=== PATIENT | female | born 1950 | race Caucasian/White ===

== ENCOUNTER → 2017-03-08 | Outpatient (CLI) | payer OTHER ==
[~2017-03-08] MED LIST: BMX1; CRG40; NAPR-201; PANT40TA; POTA-327; SIMV20TA2
--- NOTE | 2017-03-08 12:35 | MAMMOGRAPHY REPORT ---
BILATERAL DIGITAL SCREENING MAMMOGRAM WITH CAD: 03/08/2017 CLINICAL HISTORY: Routine screening. Patient has no complaints. TECHNIQUE: Current study was also evaluated with a Computer Aided Detection (CAD) system. Bilatera l CC and MLO views were obtained. COMPARISON: Comparison is made to exams dated: 03/05/2016 mammogram, 03/02/2015 mammogram, 03/01/2014 ma mmogram, 02/25/2012 mammogram, 02/26/2013 mammogram, and 01/08/2011 mammogram - [facility]. BREAST COMPOSITION: There are scattered areas of fibroglandular density in both breasts. FINDINGS: No suspicious masses, calcifications, or areas of architectural distortion are noted in e ither breast. There has been no significant interval change compared to prior exams. IMPRESSION: ACR BI-RADS CATEGORY 1: NEGATIVE There is no mammographic evidence of malignancy. A 1 year screening mammogram is recommended. The p atient will receive written notification of the results. Approximately 10% of breast cancers are not detected with mammography. A negative mammographic repor t should not delay biopsy if a clinically suggestive mass is present. Val Srivastava M.D. ah/:03/08/2017 12:23:03 Cobol Application Developer: Melissa VELEZ(Nancy)(Maira), [facility] letter sent: Normal 1/2 BI-RADS Code: ACR BI-RADS Category 1: Negative
== END | disposition home or self-care (01) ==
LOC: C.MAMM 09:31
PROVIDERS: ATTEND Obstetrics & Gynecology
DX: Z12.31 Encounter for screening mammogram for malignant neoplasm of breast (principal)

== ENCOUNTER → 2017-05-15 | Outpatient (CLI) | payer OTHER ==
[2017-05-15 14:22] LABS: ALT/SGPT 21 U/L (12-78); AST/SGOT 21 U/L (15-37); BLOOD UREA NITROGEN 29 mg/dl (7-18); BUN/CREATININE RATIO 31.3 (10-20); CALCIUM 9.1 mg/dl (8.5-10.1); CARBON DIOXIDE 27 mmol/L (21-32); CHLORIDE 104 mmol/L (98-107); CHOLESTEROL 129 mg/dl (0-200); CREATININE 0.92 mg/dl (0.60-1.20); GLUCOSE 86 mg/dl (70-99); SODIUM 139 mmol/L (136-145)
[2017-05-15 14:25] LABS: ALB/GLOB RATIO 0.9 (0.9-2); ALKALINE PHOSPHATASE 65 U/L (45-117); CHOLESTEROL/HDL RATIO 3.3; HDL CHOLESTEROL 39 mg/dl; TRIGLYCERIDES 243 mg/dl (0-150); VERY LOW DENSITY LIPOPROT CALC 49 mg/dl
[2017-05-15 14:53] LABS: ESTIMATED AVERAGE GLUCOSE 105 mg/dl; HA1C FLAG Normal (Normal)
== END | disposition home or self-care (01) ==
LOC: C.LABSPEC 12:10
PROVIDERS: ATTEND Internal Medicine
DX: Z00.00 Encounter for general adult medical examination without abnormal findings (principal); I10 Essential (primary) hypertension; E11.65 Type 2 diabetes mellitus with hyperglycemia; E78.5 Hyperlipidemia, unspecified

== ENCOUNTER → 2017-11-08 | Outpatient (CLI) | payer OTHER ==
[2017-11-08 13:15] LABS: ESTIMATED AVERAGE GLUCOSE 108 mg/dl; HA1C FLAG Normal (Normal)
[2017-11-08 13:46] LABS: BLOOD UREA NITROGEN 27 mg/dl (7-18); CREATININE 0.82 mg/dl (0.60-1.20); GLUCOSE 95 mg/dl (70-99)
[2017-11-08 13:47] LABS: ALB/GLOB RATIO 0.9 (0.9-2); ALKALINE PHOSPHATASE 63 U/L (45-117); ALT/SGPT 16 U/L (12-78); AST/SGOT 15 U/L (15-37); BUN/CREATININE RATIO 32.6 (10-20); CALCIUM 8.6 mg/dl (8.5-10.1); CARBON DIOXIDE 27 mmol/L (21-32); CHLORIDE 105 mmol/L (98-107); CHOLESTEROL 110 mg/dl (0-200); HDL CHOLESTEROL 37 mg/dl; POTASSIUM 3.8 mmol/L (3.5-5.1); SODIUM 138 mmol/L (136-145); TRIGLYCERIDES 174 mg/dl (0-150); VERY LOW DENSITY LIPOPROT CALC 35 mg/dl
== END | disposition home or self-care (01) ==
LOC: C.LABSPEC 12:26
PROVIDERS: ATTEND Internal Medicine
DX: Z00.01 Encounter for general adult medical examination with abnormal findings (principal); E11.9 Type 2 diabetes mellitus without complications; E78.5 Hyperlipidemia, unspecified; I10 Essential (primary) hypertension

== ENCOUNTER → 2018-03-13 | Outpatient (CLI) | payer OTHER ==
--- NOTE | 2018-03-13 14:54 | MAMMOGRAPHY REPORT ---
BILATERAL DIGITAL SCREENING MAMMOGRAM TOMOSYNTHESIS WITH CAD: 03/13/2018 CLINICAL HISTORY: Routine screening. Patient has no complaints. TECHNIQUE: Breast tomosynthesis in addition to standard 2D mammography was performed. Current study was also evaluated with a Computer Aided Detection (CAD) system. COMPARISON: Comparison is made to exams dated: 03/08/2017 mammogram, 03/05/2016 mammogram, 03/02/2015 ma mmogram, 03/01/2014 mammogram, 02/25/2012 mammogram, and 01/08/2011 mammogram - [facility] er. BREAST COMPOSITION: There are scattered areas of fibroglandular density in both breasts. FINDINGS: No suspicious masses, calcifications, or areas of architectural distortion are noted in ei ther breast. There has been no significant interval change compared to prior exams. IMPRESSION: ACR BI-RADS CATEGORY 1: NEGATIVE There is no mammographic evidence of malignancy. A 1 year screening mammogram is recommended. The pa tient will receive written notification of the results. Approximately 10% of breast cancers are not detected with mammography. A negative mammographic report should not delay biopsy if a clinically suggestive mass is present. Val Srivastava M.D. ah/:03/13/2018 09:37:01 Movie Stunt Performer: Melissa VELEZ(Nancy)(Maira), [facility] letter sent: Normal 1/2 BI-RADS Code: ACR BI-RADS Category 1: Negative
== END | disposition home or self-care (01) ==
LOC: C.MAMM 08:45
PROVIDERS: ATTEND Obstetrics & Gynecology
DX: Z12.31 Encounter for screening mammogram for malignant neoplasm of breast (principal)

== ENCOUNTER → 2018-07-08 | Outpatient (CLI) | payer OTHER | END | disposition home or self-care (01) | LOC: C.MAMM 14:06 | PROVIDERS: ATTEND Internal Medicine | DX: M85.89 Other specified disorders of bone density and structure, multiple sites (principal) ==

== ENCOUNTER 2024-03-15 08:57 | Inpatient (IN) ==
--- NOTE | 2024-03-15 09:12 | Emergency Department Note ---
History of Present Illness General Chief complaint: Heart Alert Time Seen by Provider: 03/15/24 09:01 Source: patient, family ( who is at the bedside), EMS (I did talk to the file drawer finisher on the phone), RN notes reviewed and old records reviewed (09/23/23- primary care office visit for follow-up on diabetes and hypertension) Mode of arrival: EMS Limitations: no limitations History of Present Illness This patient 73-year-old female has no known history of cardiac disease, comes in by EMS after having chest pain. EMS called and alerted me that they felt she was having a STEMI based on EKG. The chest pain started on 8:[address] segment elevations laterally with Q waves. She does have reciprocal changes as well. She has had some nausea. She did receive aspirin and nitro x 5 in the ambulance. She did receive morphine IV as well as nitro and now feels better. At present she denies any chest pain or shortness of breath she was diaphoretic and had pain rating to the arm and neck in the ambulance. She denies any shortness of breath or pleurisy. She did recently come back from out of town where she flew. Her brother had recently . Home Medications Medication Instructions Recorded Confirmed Type [id number] acid 0.4 1 tab PO DAILY 12/09/20 03/15/24 History mg-lycopene 300 mcg-lutein 250 mcg tablet (Centrum Silver) omega-3 fatty acids [Fish Oil] 1 PO 12/09/20 01/21/24 History one touch ultra mini #1 ea 09/25/22 01/21/24 Rx blood sugar diagnostic (OneTouch #100 ea 01/11/23 01/21/24 Rx Ultra Test strips) lancets 33 gauge (OneTouch Delica #100 ea 01/11/23 01/21/24 Rx Lancets) estradiol 0.01% (0.1 mg/gram) 1 g vaginal .COMPLEX #42.5 grams 02/06/23 03/15/24 Rx vaginal cream (Estrace) lactobacillus combination no.9 4 4,000 mmu cells PO DAILY 06/03/23 03/15/24 History billion cell capsule (Adult 50 Plus Probiotic) metformin 500 mg tablet,extended 500 mg PO DAILY #90 tabs 09/13/23 03/15/24 Rx release 24 hr metoprolol tartrate 25 mg tablet 25 mg PO BID #180 tabs 10/24/23 03/15/24 Rx bumetanide 1 mg tablet 0.5 mg (1/2 x 1 mg) PO DAILY #45 11/27/23 03/15/24 Rx tabs dexamethasone [Dexamethasone PO 01/20/24 01/21/24 History Intensol] naproxen 375 mg tablet 375 mg PO DAILY #90 tabs 02/13/24 03/15/24 Rx omeprazole 20 mg capsule,delayed 20 mg PO DAILY #90 caps 02/13/24 03/15/24 Rx release olmesartan 40 mg tablet 40 mg PO DAILY #90 tabs 02/14/24 03/15/24 Rx dicyclomine 10 mg capsule 10 mg PO BID 03/15/24 03/15/24 History gabapentin 100 mg capsule 200 mg PO HS neuropathy 03/15/24 03/15/24 History simvastatin 20 mg tablet 20 mg PO HS 03/15/24 03/15/24 History Allergies Allergy/AdvReac Type Severity Reaction Status Date / Time inositol niacinate AdvReac Mild turned red Verified 01/21/24 10:08 [From Niacin No Flush] niacin [From Niacin No Flush] AdvReac Mild turned red Verified 01/21/24 10:08 Past Med/Surg History Medical History Lumbosacral radiculopathy Lumbosacral spondylosis Lumbar pain with radiation down both legs Osteopenia Irritable bowel syndrome with diarrhea GERD (gastroesophageal reflux disease) Type 2 diabetes mellitus with peripheral neuropathy Mixed hyperlipidemia Primary hypertension Surgical History Hx of colonoscopy 2020 History of surgery on lower extremity 2002 Family History Aunt Breast cancer Grandmother (Maternal) Breast cancer Diabetes Father Myocardial infarction Grandfather Cancer Mother Heart disease Hypertension Father Heart disease Brother Cancer leukemia, gallbladder and liver Denies family history of Ovarian cancer Prostate cancer Colorectal cancer Social History Smoking Status: Never smoker Second Hand Exposure: No; Do You Dip or Chew Tobacco: No; Tobacco Cessation Education Requested by Patient: No Hx Alcohol Use: No Hx Substance Use: No Preferred Language: Turkish Communication Ability: Effective Visual Impairment: No Limitations Hearing Ability: Normal Senior Database Engineer Required: No Beliefs That Will Affect Care: None marital status: Current Living Situation: Spouse current occupational status: retired Other Information That Helps Us Care for You: No Feels Safe at Home: Yes Safety Concerns: Feels Safe At This Time Childhood Exposure to Second-Hand Smoke: Yes Dental Care, Regularly: Yes Seatbelt Use: always Review of Systems A total of 10 systems reviewed and were otherwise negative Physical Exam Vital Signs Vital Signs - 24 hr 03/15/24 09:16 03/15/24 09:19 03/15/24 09:26 Temperature 36.7 C Temperature Source Temporal Artery Scan Pulse Rate 117 H 121 H 112 H Respiratory Rate 18 18 Respiratory Effort / Characteristics Non-Labored Spontaneous Respiratory Depth Normal Respiratory Pattern Regular Blood Pressure 145/95 H 142/88 H Blood Pressure Mean 111 106 Blood Pressure Position Sitting Pulse Oximetry 100 99 Oxygen Delivery Method Nasal Cannula Nasal Cannula Oxygen Flow Rate 2 2 Sepsis Recent Fever Within 48 Hours No Sepsis New/Unexplained Change in Mental Status N/A Sepsis Action Taken by Nursing No Action Required 03/15/24 09:30 Temperature Temperature Source Pulse Rate 108 H Respiratory Rate 16 Respiratory Effort / Characteristics Respiratory Depth Respiratory Pattern Blood Pressure 147/90 H Blood Pressure Mean 109 Blood Pressure Position Pulse Oximetry 98 Oxygen Delivery Method Nasal Cannula Oxygen Flow Rate 2 Sepsis Recent Fever Within 48 Hours Sepsis New/Unexplained Change in Mental Status Sepsis Action Taken by Nursing General: Well developed well nourished middle-age female in no acute distress, breathing comfortably on room air. Normal speech HEENT: Normal cephalic atraumatic. Pupils are equal round and reactive to light. Extraocular movements are intact. Oropharynx is pink with moist mucous membranes. No swelling of the mouth lips or tongue. Neck: Supple with a midline trachea. No meningeal signs or stiffness, no JVD or bruits. No Stridor. Chest: Clear to auscultation bilaterally. No wheezes or rhonchi. No increased work of breathing. Heart: Regular rate and rhythm without murmurs or gallops. Abdomen: Soft nontender, nondistended without rebound guarding or rigidity. Extremities: No cyanosis clubbing or edema. No calf tenderness or assymetry Spine/Back. Non tender to palpation. No CVA tenderness Skin: Good turgor without rashes. Neurologic exam: Cranial nerves two through 12 are intact. Motor and sensation are intact and symmetrical throughout. Course Administered Medications Bumetanide (Bumetanide 1 Mg Tab) 1 mg PO QAM [facility] Stop: 04/14/24 10:59 Last Admin: 03/15/24 12:46 Dose: 1 mg Documented By: MTP Pantoprazole Sodium 40 mg/ (Syringe) 10 mls @ 5 mls/min IV DAILY@1100 [facility] Stop: 04/14/24 11:14 Last Admin: 03/15/24 12:47 Dose: 5 mls/min Documented By: MTP Magnesium Sulfate/Dextrose (Magnesium Sulfate / D5w) 1 gm in 100 mls @ 50 mls/hr IV Q2H [facility] Stop: 03/15/24 16:44 Last Admin: 03/15/24 13:54 Dose: 50 mls/hr Documented By: YENY Insulin Aspart (Insulin Aspart Per Unit Charge) 0 units SC ACHS [facility]; Protocol Stop: 04/14/24 11:44 Last Admin: 03/15/24 11:58 Dose: 1 units Documented By: MTP Co-signed By: DIPESH Discontinued Medications Carvedilol (Carvedilol 3.125 Mg Tab) 3.125 mg PO ONE STA Stop: 03/15/24 11:15 Last Admin: 03/15/24 11:51 Dose: 3.125 mg Documented By: MTP Fentanyl Citrate (Fentanyl Citrate Pf 100 Mcg/2 Ml Vial) Confirm Administered Dose 100 mcg .ROUTE .STK-MED ONE Stop: 03/15/24 09:25 Last Admin: 03/15/24 11:40 Dose: Not Given Documented By: MTP Heparin Sodium (Porcine) (Heparin (Porcine) 1000 Unit/Ml 10 Ml ([facility] Use Only)) Confirm Administered Dose 10,000 units .ROUTE .STK-MED ONE Stop: 03/15/24 09:24 Last Admin: 03/15/24 11:40 Dose: Not Given Documented By: MTP Heparin Sodium/Sodium Chloride (Heparin In Nss Infusion 1000 Unit/500 Ml (2 U/Ml) Bag) Confirm Administered Dose 3,000 units IV .STK-MED ONE Stop: 03/15/24 09:25 Last Admin: 03/15/24 11:40 Dose: Not Given Documented By: MTP Promethazine HCl 6.25 mg/ (Sodium Chloride) 50.25 mls @ 201 mls/hr IV ONE ONE Stop: 03/15/24 11:44 Last Admin: 03/15/24 11:51 Dose: 201 mls/hr Documented By: [facility] Famotidine (Pepcid 20mg Iv Push) 20 mg in 5 mls @ 2.5 mls/min IV NOW STA Stop: 03/15/24 11:25 Last Admin: 03/15/24 11:51 Dose: 2.5 mls/min Documented By: [facility] Magnesium Sulfate/Dextrose (Magnesium Sulfate / D5w) 1 gm in 100 mls @ 100 mls/hr IV NOW STA Stop: 03/15/24 12:32 Last Admin: 03/15/24 11:55 Dose: 100 mls/hr Documented By: [facility] Ioversol (Optiray 350) Confirm Administered Dose 1 ml .ROUTE .STK-MED ONE Stop: 03/15/24 09:27 Last Admin: 03/15/24 11:41 Dose: Not Given Documented By: [facility] Midazolam HCl (Midazolam Hcl 1 Mg/Ml 2ml Vial) Confirm Administered Dose 2 mg .ROUTE .STK-MED ONE Stop: 03/15/24 09:24 Last Admin: 03/15/24 11:40 Dose: Not Given Documented By: [facility] Nicardipine HCl (Nicardipine Hcl Inj 2.5 Mg/Ml 10 Ml Amp) Confirm Administered Dose 25 mg .ROUTE .STK-MED ONE Stop: 03/15/24 09:25 Last Admin: 03/15/24 11:40 Dose: Not Given Documented By: [facility] Nitroglycerin/Dextrose (Nitroglycerin/D5w 100mcg/Ml 20ml Syr) Confirm Administered Dose 2,000 mcg .ROUTE .STK-MED ONE Stop: 03/15/24 09:26 Last Admin: 03/15/24 11:41 Dose: Not Given Documented By: [facility] Ticagrelor (Ticagrelor 90 Mg Tab) Confirm Administered Dose 180 mg .ROUTE .STK- MED ONE Stop: 03/15/24 09:37 Last Admin: 03/15/24 11:42 Dose: Not Given Documented By: [facility] Critical Care Time Critical Care Time: Yes Total Critical Care Time: 30 Due to the concern for acute coronary syndrome/STEMI, I discussed the case at length with the file drawer finisher a prehospital order saw the patient upon arrival discussed with cardiology and the nursing team and move quickly to expedite her care to the [facility], I have personally spent greater than 30 minutes of critical care time in the direct management of this patient. This includes bedside care, interpretation of diagnostic studies, and testing, discussion with consultants, patient, and family members, and other required patient management activities. This 30 minutes is in excess of all separately billable procedures. Medical Decision Making Differential Diagnosis Acute coronary syndrome, STEMI, CHF, aortic pathology, electrolyte or metabolic abnormality Medical Records Attestation: I reviewed the patient's medical records. Home Medications Current Medication List: was personally reviewed by me Laboratory Data Attestation: I reviewed the patient's lab results. 03/15/24 09:19 03/15/24 09:19 Lab Results 03/15/24 Range/Units 09:19 WBC 9.98 (4.8-10.8) K/ul RBC 4.05 L (4.20-5.40) M/uL Hgb 12.4 (12.0-16.0) g/dl Hct 35.6 L (37.0-47.0) % MCV 87.9 (80.0-100.0) fL MCH 30.6 (25.0-34.0) pg MCHC 34.8 (32.0-36.0) g/dL RDW Std Deviation 45.4 (36.4-46.3) fL RDW Coeff of Rebekah 14.1 (11.5-14.5) % Plt Count 205 (130-400) K/uL MPV 9.4 (9.4-12.4) fL Immature Gran % (Auto) 0.5 % Neut % (Auto) 62.4 % Lymph % (Auto) 25.8 % [place] % (Auto) 8.3 % Eos % (Auto) 2.3 % Baso % (Auto) 0.7 % Neut # (Auto) 6.23 (1.40-6.50) K/uL Lymph # (Auto) 2.57 (1.20-3.40) K/uL [place] # (Auto) 0.83 H (0.11-0.59) K/uL Eos # (Auto) 0.23 (0.00-0.50) K/uL Baso # (Auto) 0.07 (0.00-0.20) K/uL Immature Gran # (Auto) 0.05 (0.01-0.20) K/uL PT 10.9 (9.0-12.0) Seconds INR 1.0 (0.9-1.1) APTT 29 (21-31) Seconds PTT Ratio 1.0 Sodium 138 (136-145) mmol/L Potassium 4.3 (3.5-5.1) mmol/L Chloride 106 (98-107) mmol/L Carbon Dioxide 26 (21-32) mmol/L Anion Gap 6 (3-11) BUN 26 H (6-23) mg/dl Creatinine 1.13 (0.6-1.2) mg/dl Est Cr Clr Drug Dosing 42.3 ml/min Est GFR ( Amer) 55.1 ml/min Est GFR (Non-Af Amer) 47.5 ml/min BUN/Creatinine Ratio 23.0 H (10-20) Glucose 170 H (70-99(Fasting)) mg/dl Calcium 9.3 (8.6-10.3) mg/dl Magnesium 1.5 L (1.7-2.4) mg/dl Total Bilirubin 0.4 (0.2-1.0) mg/dl AST 20 (13-39) U/L ALT 14 (7-52) U/L Alkaline Phosphatase 59 (34-104) U/L Troponin I High Sens 1374.0 H* (0-14) pg/ml Total Protein 6.5 (6.0-8.3) gm/dl Albumin 3.9 (3.4-5.0) gm/dl Globulin 2.6 (2.5-4.0) gm/dl Albumin/Globulin Ratio 1.5 (0.9-2) Lipase 38 (11-82) U/L Imaging Data Attestation: I personally reviewed and interpreted this imaging study as follows: My Impression: Chest x-ray-no acute infiltrate, failure, pneumothorax seen Radiologist's Impression: Chest X-Ray 03/15/24 09:16 XR chest 1V portable CLINICAL HISTORY: Chest pain, nonspecific COMPARISON STUDY: No previous studies for comparison. FINDINGS: Lung volumes are normal. Lungs are clear. There is no pneumothorax or pleural effusion. Cardiac size is normal. A small hiatal hernia is present. There is no evidence for pulmonary edema. IMPRESSION: No acute cardiopulmonary findings. ACT 112: Negative or not required by law. Electronically signed by: Alexei Babb M.D. 03/15/2024 9:32 AM ECG Data Attestation: I personally reviewed and interpreted this ECG as follows: Indication: + chest pain Rate (beats per minute): 87 Rhythm: + normal sinus ECG Intervals/blocks: + Normal QRS, + Normal QT and + Normal RI ECG [place]: + Normal ECG ST segments: + ST elevation ECG Findings: no PACs or no PVCs Comparison ECG Date: from (01/14/1995) Change: the following changes noted (Significant changes have occurred including ST segment elevations) Additional Comments: EKG #2 done in the emergency departmentsinus tachycardia with incomplete right bundle [place] block left axis deviation. The ST segment elevations and hyperacute T waves do appear slightly improved compared to the MDM Narrative This patient was brought in by EMS. She has a history consistent with acute coronary syndrome/MN. Her EKG shows ST segment elevations. They called me and transmitted the EKG prior to arrival and I did call the heart alert with 20+ minutes out to help expedite her care. She was placed in room B1 upon arrival. She had received multiple medications prior to arrival and I did talk to the file drawer finisher prior to arrival as well. She was feeling a lot better. EKG still shows diffuse ST segment elevations more laterally and anteriorly. Chest x-ray shows no acute CHF or abnormalities. Her initial blood work shows an elevated troponin. Dr. Pizano and the [facility] team did arrive and she will be going to the [facility] for cardiac catheterization for acute coronary syndrome/MN Continuous cardiac monitoring: Orders placed in EMR for for continuous cardiac monitoring. Upon my evaluation, she was noted to be in sinus tachycardia with a rate of 110 Impression & Plan Acute ST elevation myocardial infarction (STEMI), Hypertension, Chest pain, DM type 2 (diabetes mellitus, type 2) Discharge Plan Visit Data Chief Complaint: Heart Alert ED Provider: Eze Cardoza Discharge Problem: Acute ST elevation myocardial infarction (STEMI), Hypertension, Chest pain, DM type 2 (diabetes mellitus, type 2) Patient Disposition: Admitted As Inpatient Discharge Instructions Interventions: ED Discharge Assessment Last Done: 03/15/24 09:30 Discharge Problem: Acute ST elevation myocardial infarction (STEMI) Qualifiers: Involved coronary artery: unspecified coronary artery Qualified Code(s): I21.3 - ST elevation (STEMI) myocardial infarction of unspecified site Hypertension Qualifiers: Hypertension type: unspecified Qualified Code(s): I10 - Essential (primary) hypertension Chest pain Qualifiers: Chest pain type: precordial pain Qualified Code(s): R07.2 - Precordial pain DM type 2 (diabetes mellitus, type 2) Qualifiers: Diabetes mellitus [facility] insulin use: without [facility] use Diabetes mellitus complication status: with other specified complication Qualified Code(s): E11.69 - Type 2 diabetes mellitus with other specified complication
--- OUTSIDE RECORDS SUMMARY | 2024-03-15 09:19 | External Medical Summary | Continuity of Care Document ---
Author Name Unknown Organization [facility] [address] [place], [place] [address] Address [facility] [place], [place] [id number] Care Team Providers Care [place] Name Role Phone Shanna Sanchez Primary Care Physician [phone] [facility] [id number] Date(s): 01/29/24 - 01/29/24 [facility] [address] [place] [id number] [address] [address] Encounter Diagnosis Diabetes(Discharge Diagnosis) - 01/29/24 Diabetic neuropathy(Discharge Diagnosis) - 01/29/24 Callus(Discharge Diagnosis) - 01/29/24 Tinea unguium(Discharge Diagnosis) - 01/29/24 Discharge Disposition: Home or Self Care Attending Physician: SANDRA Newell Christina L Referring Physician: MD Daniel, Shanna Hoffman Allergies, Adverse Reactions, Alerts Substance Reaction Severity Status niacin redness Active Assessment and Plan Extracted from: Title:Follow Up Visit Author:SANDRA Newell, Nabor Hurst Date:01/29/24 1.Diabetes 2.Diabetic neuropathy 3.Callus 4.Tinea unguium -Patient unable to provide self care to toenails due todiabetes - verbal consent obtained for debridement -Recommend toenail debridement -Patient had toenails of bilateral digits 1-5 debrided using nail nippers to tolerance, no bleeding noted -Patient instructed to use emery board to nails once per week -Patient had no ingrown toenails or infection noted -Patient is to follow up in6 months for treatment if needed in the future Medications bumetanide Start: 09/25/18 9:29:00 EDT, 1 mg =, PO, 1/2 A DAY Start Date: 09/25/18 Status: Ordered Centrum Start: 09/25/18 9:34:00 EDT, See Instructions, Note to Pharmacy: 1 DAILY Start Date: 09/25/18 Status: Ordered dicyclomine 10 mg oral capsule Start: 09/25/18 9:29:00 EDT, 1 cap, PO, qid Start Date: 09/25/18 Status: Ordered gabapentin 100 mg oral capsule Start: 11/02/22 14:20:00 EST, 2 cap, PO, Daily, Disp# 120 cap, Refills: 4, Pharmacy: [id number] Start Date: 11/02/22 Stop Date: 08/29/23 Status: Ordered gabapentin 100 mg oral capsule Start: 08/08/22 8:35:00 EDT, 1 cap, PO, Daily, Disp# 30 cap, Refills: 3, Pharmacy: [id number] Start Date: 08/08/22 Stop Date: 12/06/22 Status: Ordered gabapentin 100 mg oral capsule TAKE 2 CAPSULES BY MOUTH ONCE DAILY Start Date: 10/30/23 Status: Ordered Anthony B Start: 09/25/18 9:34:00 EDT, 1 tab, PO, Daily, Note to Pharmacy: [facility] Start Date: 09/25/18 Status: Ordered metFORMIN 500 mg oral tablet Start: 09/25/18 9:30:00 EDT, 1 tab, PO, bid Start Date: 09/25/18 Status: Ordered Metoprolol Tartrate 25 mg oral tablet Start: 10/30/23 9:35:00 EST Start Date: 10/30/23 Status: Ordered metoprolol tartrate 50 mg oral tablet Start: 09/25/18 9:28:00 EDT, 0.5 tab, PO, bid Start Date: 09/25/18 Status: Ordered naproxen 375 mg oral delayed release tablet Start: 09/25/18 9:32:00 EDT, 1 tab, PO, bid, PRN: as needed for pain Start Date: 09/25/18 Status: Ordered olmesartan 20 mg oral tablet Start: 07/24/23 8:43:00 EDT, 0.5 tablets, Daily Start Date: 07/24/23 Status: Ordered prazosin 1 mg oral capsule Start: 09/25/18 9:31:00 EDT, See Instructions, 1 cap PO DAILY Start Date: 09/25/18 Status: Ordered Probiotic Formula Start: 09/25/18 9:35:00 EDT, 1 cap, PO, Daily Start Date: 09/25/18 Status: Ordered simvastatin 20 mg oral tablet Start: 09/25/18 9:33:00 EDT, 1 tab, PO, qhs Start Date: 09/25/18 Status: Ordered Mental Status 01/29/24 Barriers to Learning one year None evide nt Mandatory Health Literacy Documentation Yes Health Literacy Communication Barriers N ever Primary Language [place]er Problem List Condition Confirmation Course Effective Dates Status Health St atus Informant Callus Confirmed Active Diabetes Confirmed Active 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 Active High blood pressure disorder Confirmed Active Diabetic neuropathy Confirmed Active Tinea unguium Confirmed Active Diabetic ulcer of right foot Confirmed Active Diagnosis Diagnosis Type Effective Dates Health Status Clinical Service Informant Diabetic neuropathy Discharge Diagnosis 01/29/24 Tinea unguium Discharge Diagnosis 01/29/24 Diabetes Discharge Diagnosis 01/29/24 Callus Discharge Diagnosis 01/29/24 Procedures Procedure Date Related Diagnosis Body Site Status Colonoscopy 1 02/22/22 Completed Fracture 2 Completed 1Internal hemorrhoids that do not return to the anal canal, thus continuously prolapsed (Garde IV) found on perianal exam. The entire examined colon is normal. The examined portion of th eileum was normal, biopsied. Non-bleeding internal hemorrhoids. Multiple biopsies were obtained in the rectum and in the sigmoid colon. Pathology showed no abnormalities. Repeat in 10 years. 2Left tib/fib ORIF Vital Signs Most recent to oldest [Reference Range]: 1 Height 157.7 cm (01/29/24 2:48 PM) Patient Weight 72.0 kg (01/29/24 2:48 PM) Body Mass Index 28.95 kg/m2 (01/29/24 2:48 PM) Social History Social History Type Response Smoking Status Never smoked cigaret josefa Sex Female Ortho Outpt Note * SANDRA Newell Christina L: PERFORM Event Display: Ortho Outpt Note Authored Date: [id number] Chief Complaint nail care , red spot on left 2nd and thiord toe Primary Care Provider MD Daniel, Shanna Hoffman Subjective Patient is a very pleasant 73-year-old femalemoderate risk diabetic due to previous diabetic ulcerknown history of neuropathy and deals with sciatic pain following up today last seen October 30, 2023. No acute concerns noted today. Review of Systems Diabetes, sciatica, high blood pressure Objective Vitals & Measurements WT:72.000kg(Dosing) WT:72.0kg Physical Exam Problem Focused Bilateral feet: Vascular: Dorsalis pedis pulse palpable 1 out of 4 posterior tibial pulse nonpalpable Pedal hair is noted to be present, capillary fill time less than 3 seconds, skin turgor good to alldigits of both feetno swellingor varicosities noted Neurologic: Monofilament test noted to be absent to distal extremities,light touch absent to distal extremities, proprioception absent to distal extremities, vibratorydiminishedhistory of diabetic neuropathy as well as sciatica Orthopedic examination: hammertoes bilateral 5th digits, non tender and stable No bruising or open wounds History of previous ulceration well-healed Dermatologic examination: Toenails of digits 1 through 5 of bilateral feet with dystrophy, thickening greater than 1 mm, elongation, pain recommend debridement Fourth interspace right footulcer well-healed no opening present in skin. Callus present distal aspect right third toe not present today. Assessment/Plan 1.Diabetes 2.Diabetic neuropathy 3.Callus 4.Tinea unguium -Patient unable to provide self care to toenails due todiabetes - verbal consent obtained for debridement -Recommend toenail debridement -Patient had toenails of bilateral digits 1-5 debrided using nail nippers to tolerance, no bleedingnoted -Patient instructed to use emery board to nails once per week -Patient had no ingrown toenails or infection noted -Patient is to follow up in6 months for treatment if needed in the future Electronic Signature on File Electronically Reviewed/Signed by: Yoly Newell DPM Author Signature Dt/Tm:01/29/2024 03:03 PM Division of Sports Medicine CLR Patient Care team information Care Team Personnel Name: MD Daniel, Shanna Hoffman Position: Referring Member Role: Primary Care Provider Address: Address: [facility] [address], [address] [address]
--- NOTE | 2024-03-15 09:34 | XRay Report ---
XR chest 1V portable CLINICAL HISTORY: Chest pain, nonspecific COMPARISON STUDY: No previous studies for comparison. FINDINGS: Lung volumes are normal. Lungs are clear. There is no pneumothorax or pleural effusion. Car diac size is normal. A small hiatal hernia is present. There is no evidence for pulmonary edema. IMPRESSION: No acute cardiopulmonary findings. ACT 112: Negative or not required by law. Electronically signed by: Alexei Babb M.D. 03/15/2024 9:32 AM
[2024-03-15 09:35] LABS: Basophils # (auto) 0.07 K/uL (0.00-0.20); Basophils % (auto) 0.7 %; Eosinophils # (auto) 0.23 K/uL (0.00-0.50); Eosinophils % (auto) 2.3 %; Hematocrit (blood only) 35.6 % (37.0-47.0); Hemoglobin 12.4 g/dl (12.0-16.0); Immature Granulocytes # (auto) 0.05 K/uL (0.01-0.20); Immature Granulocytes % (auto) 0.5 %; Lymphocytes # (auto) 2.57 K/uL (1.20-3.40); Lymphocytes % (auto) 25.8 %; Mean Corpuscular Hemoglobin 30.6 pg (25.0-34.0); Mean Corpuscular Hgb Conc 34.8 g/dL (32.0-36.0); Mean Corpuscular Volume 87.9 fL (80.0-100.0); Mean Platelet Volume 9.4 fL (9.4-12.4); Monocytes # (auto) 0.83 K/uL (0.11-0.59); Monocytes % (auto) 8.3 %; Neutrophils # (auto) 6.23 K/uL (1.40-6.50); Neutrophils % (auto) 62.4 %; Platelet Count 205 K/uL (130-400); RDW Coefficient of Variation 14.1 % (11.5-14.5); RDW Standard Deviation 45.4 fL (36.4-46.3); Red Blood Count 4.05 M/uL (4.20-5.40); White Blood Count 9.98 K/ul (4.8-10.8)
[2024-03-15 09:51] LABS: Albumin Globulin Ratio 1.5 (0.9-2); Albumin Level 3.9 gm/dl (3.4-5.0); Bilirubin,Total 0.4 mg/dl (0.2-1.0); Calcium 9.3 mg/dl (8.6-10.3); Creatinine Clr Calc Pharmacy 42.3 ml/min; Est GFR (African American) 55.1 ml/min; Est GFR (Non-African American) 47.5 ml/min; Globulin 2.6 gm/dl (2.5-4.0); Potassium 4.3 mmol/L (3.5-5.1); Total Protein 6.5 gm/dl (6.0-8.3)
[2024-03-15 10:02] LABS: Partial Thromboplastin Time 29 Seconds (21-31); Prothrombin Time 10.9 Seconds (9.0-12.0)
[2024-03-15] MEDS ORDERED: ATROPINE SULFATE 0.1 MG/ML 10ML SYR IV PRN (10:23)
--- NOTE | 2024-03-15 10:37 | Pre Anesthesia Assessment ---
Date of Service March 15, 2024 Pre Sedation Assessment Vital Signs Temp Pulse Resp BP Pulse Ox O2 Del Method O2 Flow Rate 03/15/24 09:30 108 H 16 147/90 H 98 Nasal Cannula 2 03/15/24 09:26 112 H 18 142/88 H 99 Nasal Cannula 2 03/15/24 09:19 121 H 03/15/24 09:16 36.7 C 117 H 18 145/95 H 100 Nasal Cannula 2 Cardiovascular Additional Comments: Regular rhythm, tachycardic rate. S4 gallop. Do not appreciate any rubs or murmurs. Respiratory normal respiratory effort, lungs clear to auscultation Pre-Sedation Airway Assessment Smoking Status: Never smoker Mallampati 2 ASA 4 Notes The planned sedation has been discussed with the patient. Informed Consent was obtained. I have identified the patient, determined the appropriateness of sedation and have assessed the patient immediately prior to the procedure. All medicine(s) and interventions are by my order. [facility] Procedure Codes (Charges) Indication for Procedure Indication for procedure: ACS Sedation/Anesthesia Procedure 1: Sedation/Anesthesia: 81727 Mod Sedation by the same physician;Init15 Min Child Age 5 & Up (Initial 15 min, start 0943) Total Sedation Time (minutes): 17 Procedure 2: Sedation/Anesthesia: 03219 Mod Sedation by the same physician; Ea [id number] Minutes (Additional to min, end 10:00) Total Sedation Time (minutes): 17
--- NOTE | 2024-03-15 10:39 | Post Anesthesia Assessment ---
Date of Service March 15, 2024 Post Sedation Assessment Vital Signs Temp Pulse Resp BP Pulse Ox O2 Del Method O2 Flow Rate 03/15/24 09:30 108 H 16 147/90 H 98 Nasal Cannula 2 03/15/24 09:26 112 H 18 142/88 H 99 Nasal Cannula 2 03/15/24 09:19 121 H 03/15/24 09:16 36.7 C 117 H 18 145/95 H 100 Nasal Cannula 2 Recovery Score Activity: Moves 4 extremities Respiration: Deep Breath/Cough Circulation: +/-20% PreAnes Value Consciousness: Fully Awake Oxygen Saturation: > 92% On Room Air Discharge Sedation Level of Care: Fast Track Phase II Post Sedation Plan On clinical assessment, the patient appears to have tolerated the sedation without complications. Patient is recovering as anticipated. Patient will continue to be monitored by nursing and may be discharged when sedation discharge criteria are met per below protocol. Upon Completions of procedure up to 15 minutes continue every 5 minute vital signs and the P.A.R. score; then discharge to a Phase I or Fast Track to Phase II per the following guidelines: * Discharge Patient to appropriate Phase II area if PAR is 8 or greater or return to pre- procedure baseline. The post - procedure orders will be as directed. * If PAR score is less than 8 or not return to pre-procedure baseline then patient will follow Phase I monitoring till PAR is reached for Phase II. The Phase I may be done in procedure room or may call to secure a Phase I area. * If naloxone or flumazenil are used for reversal, hold in Phase I for continued monitoring from when last reversal dose was given for a minimum of 60 minutes or longer pending the nurse and/or physician discretion of patient condition before discharge to Phase II. Please call the Sedation Physician to re-evaluate and complete post-note for discharge to Phase II area. Do NOT discharge from procedure sedation or Phase 1 until post- sedation evaluation note is complete by procedure /sedation MD Sedation Discharge Instructions to be given to the patient at discharge to home. [facility] Procedure Codes (Charges) Indication for Procedure Indication for procedure: Acute coronary syndrome Sedation/Anesthesia Procedure 1: Sedation/Anesthesia: 42893 Mod Sedation by the same physician;Init15 Min C hild Age 5 & Up (Initial 15 minutes, start 942) Total Sedation Time (minutes): 17 Procedure 2: Sedation/Anesthesia: 03131 Mod Sedation by the same physician; Ea [id number] Minutes (Additional 2 minutes, end time 1000) Total Sedation Time (minutes): 17
--- NOTE | 2024-03-15 10:53 | Cardiac Catheterization ---
[facility] Data: Parts Sales Manager Cardiac Status Clinical evaluation leading to the procedure CAD Presenation: STEMI Anginal Classification: CCS IV Heart Failure: No Cardiogenic Shock within 24 Hours: No Cardiac Arrest within 24 Hours: No Imaging Studies Past 6 Months: No STEMI OR Non-STEMI Symptom Onset Date: 03/15/24 Coronary Anatomy Dominant: Right Left Main (% Stenosis): Normal LAD (% Stenosis): Normal D1 (% Stenosis): Normal D2 (% Stenosis): Normal D3 (% Stenosis): Normal Circumflex (% Stenosis): Normal OM1 (% Stenosis): Normal OM2 (% Stenosis): Normal RCA (% Stenosis): Normal R PDA (% Stenosis): Normal R PL1 (% Stenosis): Normal Left Ventricular Angiography EF (%): 20% Wall Motion: Anterior, Apical and Inferior Mitral Regurgitation: 2+ Diagnostic Physicians Name: Mandeep Pizano MD, PhD Closure Device Percutaneous Entry Location: Radial Closure Device: Radial Band Recommendations: Medical Therapy and/or Counseling PCI Indication: PCI for STEMI - Stable Intraprocedure Events Significant Disection: No Perforation: No Cardiac Cath Procedure Full Procedure Date March 15, 2024 Pre-Procedure Diagnosis Pre-Procedure Diagnosis: STEMI AUC Score AUC Score: 09 Post-Procedure Diagnosis Post-Procedure Diagnosis: Normal Coronary Arteries and Cardiothoracic Finding (Takotsubo cardiomyopathy) Procedure(s) Performed Procedure(s) Performed: Coronary Angiography, Left Heart Cath and LV Angiography Legal Process Specialist Mandeep Pizano MD, PhD Estimated Blood Loss Estimated Blood Loss: 5 cc Medication(s) Medication(s): Fentanyl, Heparin, Lidocaine 1%, Nicardipine, Nitroglycerin and Versed Summary of Findings Brief description: Patient was brought to the cardiac catheterization suite where she was shaved and prepped in a sterile fashion. Sedated using IV Versed and fentanyl. Soft tissues of the right wrist were anesthetized using 2 mL of 1% Xylocaine. The right radial artery was accessed with a modified Seldinger technique and a 6 Scottish radial artery glide sheath was placed. Patient was provided anticoagulation with IV heparin and antispasmodics including nicardipine and nitroglycerin. All catheters were advanced and exchanged over a 0.035 J-tip wire. Left coronary angiography in orthogonal views with a 5 Scottish Waller 4 diagnostic catheter. Right coronary artery angiography in orthogonal views with a 5 Scottish Waller 4 diagnostic catheter. Left heart cath and left ventriculogram were performed with a 5 Scottish angled pigtail catheter. Diagnostic catheters were removed. Radial artery sheath was removed. Hemostasis was obtained using the TR band. The patient remained hemodynamically stable. She was returned to the recovery area. This ended the case. Coronary angiography findings: [id number] vessel which bifurcates into LAD and circumflex. No angiographically evident disease. [id number] and transapical. Provides a large septal branch and a large caliber branching first diagonal followed by several small caliber diagonals. There is no more than luminal irregularities in the LAD and its branches. TIf-xhope-bqrlsex and nondominant. First branch is an atrial followed immediately by a small OM1. Then the vessel essentially becomes a large caliber multi branching OM 2. The distal AV groove vessel is small in caliber and terminates. No more than mild luminal irregularities in the circumflex and its branches. RCA-calcification of the right coronary cusp. The RCA is large in caliber and dominant. Bifurcates distally into a large branching PDA and a large multi branching posterolateral. There is no more than mild luminal irregularities in the RCA and its branches. Left ventriculogram-EF 20% Basal segments hyperdynamic. Mid segments with severe hypokinesis and the distal plus apical segments are akinetic. Apical ballooning. Pattern is consistent with Takotsubo cardiomyopathy. 1-2+ mitral regurgitation Summary: 1. Normal epicardial coronary arteries. 2. Severely reduced EF with wall motion abnormalities consistent with Takotsubo cardiomyopathy 3. Elevated LVEDP consistent with increased ventricular volume overload/pressure overload. Hemodynamics Rest Ao:: 112/64 mmHg Final Ao: 126/95 mmHg LV: 129/27 mmHg, LVEDP 34 mmHg Recommendations Recommendations: Medical Therapy and/or Counseling Radiation Exposure (mGy) 789 mGy, fluoroscopy time 1.9 minutes Contrast (mls) 80 mL Anesthesia 1 mg Versed, 25 mcg of fentanyl IV. Start time 0943, end time 1000 Procedural Complication(s) None Disposition ICU I attest to the content of the Intraoperative Record and any orders documented therein. Any exceptions are noted below. [facility] Procedure Codes Cardiac Catheterization Procedure 1: Cardiovascular Cath Procedures: 38738 Coronaries and LHC (+/-LV) Moderate Sedation Procedure 1: Sedation/Anesthesia: 78315 Mod Sedation by the same physician;Init15 Min Child Age 5 & Up (Initial 15 minutes, start 0943) Procedure 2: Sedation/Anesthesia: 08925 Mod Sedation by the same physician; Ea [id number] Minutes (Additional 2 minutes, end 1000) PG Care Time/CCT Total # of Minutes Spent Total Time Spent with Patient: Total time spent is greater than 50% in coordination of care (as documented) at patient's floor/unit and/or counseling patient:
--- NOTE | 2024-03-15 10:55 | History & Physical Report ---
Date of Service March 15, 2024 Assessment & Plan (1) Takotsubo cardiomyopathy: Plan: Presented with ST elevations on EKG with chest pain Normal coronary arteries on cardiac cath - diagnosed with Takutsubo's cardiomyopathy (went to her brother wake yesterday) Switch metoprolol for carvedilol Switch olmesartan for Entresto Increase Bumex 0..5 -> 1mg PO daily due to increased LVEDP Aim K > 4, Mg > 2 Appreciate ongoing cardiology recommendations (2) DM type 2 (diabetes mellitus, type 2): Plan: Hemoglobin A1C 6.0 in Aug 2023, repeat with AM labs Stop metformin Jardiance added by cardiology Consult pharmacy for glycemic control (3) Hypertension: Plan: Monitor BP with multiple anti-hypertensives switched as above (4) Lumbar pain with radiation down both legs: Plan: Continue gabapentin 200mg HS (5) Hyperlipemia: Plan: Switch from simvastatin to atorvastatin per cardiology recommendations due to interactions (6) GERD (gastroesophageal reflux disease): Plan: Switch from omeprazole to pantoprazole per hospital formulary Currently will give IV due to nausea (7) Irritable bowel syndrome with diarrhea: Plan: Continue dicyclomine Plan VTE Prophylaxis - defer to ICU Diet - T2DM, heart healthy Disposition - admit to ICU Admission and Anticipated Discharge Date Admission Date: March 15, 2024 History of Present Illness Chief Complaint: Chest pain Primary Care Provider: Shanna Sanchez MD Henna Barba is a 73 year old female who presents to the ER with chest pain. She reports sudden onset chest pain at 8am this morning. Occurred after getting up this morning. No radiation. Central crushing pain. Patient was a heart alert due to ST elevations anterolaterally and was taken emergently to the [facility] demonstrating normal coronary arteries. Left ventriculogram was consistent with Takotsubo cardiomyopathy. She notes she was at her brother wake yesterday. Patient was seen in the ICU post cardiac cath and no longer have chest pain at this time but if feeling a little nauseous. She did not take any of her medications this morning. No prior history of myocardial infarction or cardiac problems. She has diabetes and HTN. Allergies Allergy/AdvReac Type Severity Reaction Status Date / Time inositol niacinate AdvReac Mild turned red Verified 01/21/24 10:08 [From Niacin No Flush] niacin [From Niacin No Flush] AdvReac Mild turned red Verified 01/21/24 10:08 Home Medications Medication Instructions Recorded Confirmed Type lnwwdlua-wpw-zrmht acid 0.4 1 tab PO DAILY 12/09/20 03/15/24 History mg-lycopene 300 mcg-lutein 250 mcg tablet (Centrum Silver) omega-3 fatty acids [Fish Oil] 1 PO 12/09/20 01/21/24 History one touch ultra mini #1 ea 09/25/22 01/21/24 Rx blood sugar diagnostic (OneTouch #100 ea 01/11/23 01/21/24 Rx Ultra Test strips) lancets 33 gauge (OneTouch Delica #100 ea 01/11/23 01/21/24 Rx Lancets) estradiol 0.01% (0.1 mg/gram) 1 g vaginal .COMPLEX #42.5 grams 02/06/23 03/15/24 Rx vaginal cream (Estrace) lactobacillus combination no.9 4 4,000 mmu cells PO DAILY 06/03/23 03/15/24 History billion cell capsule (Adult 50 Plus Probiotic) metformin 500 mg tablet,extended 500 mg PO DAILY #90 tabs 09/13/23 03/15/24 Rx release 24 hr metoprolol tartrate 25 mg tablet 25 mg PO BID #180 tabs 10/24/23 03/15/24 Rx bumetanide 1 mg tablet 0.5 mg (1/2 x 1 mg) PO DAILY #45 11/27/23 03/15/24 Rx tabs dexamethasone [Dexamethasone PO 01/20/24 01/21/24 History Intensol] naproxen 375 mg tablet 375 mg PO DAILY #90 tabs 02/13/24 03/15/24 Rx omeprazole 20 mg capsule,delayed 20 mg PO DAILY #90 caps 02/13/24 03/15/24 Rx release olmesartan 40 mg tablet 40 mg PO DAILY #90 tabs 02/14/24 03/15/24 Rx dicyclomine 10 mg capsule 10 mg PO BID 03/15/24 03/15/24 History gabapentin 100 mg capsule 200 mg PO HS neuropathy 03/15/24 03/15/24 History simvastatin 20 mg tablet 20 mg PO HS 03/15/24 03/15/24 History Past Med/Surg History Medical History Lumbosacral radiculopathy Lumbosacral spondylosis Lumbar pain with radiation down both legs Osteopenia Irritable bowel syndrome with diarrhea GERD (gastroesophageal reflux disease) Type 2 diabetes mellitus with peripheral neuropathy Mixed hyperlipidemia Primary hypertension Surgical History Hx of colonoscopy 2020 History of surgery on lower extremity 2002 Family History Aunt Breast cancer Grandmother (Maternal) Breast cancer Diabetes Father Myocardial infarction Grandfather Cancer Mother Heart disease Hypertension Father Heart disease Brother Cancer leukemia, gallbladder and liver Denies family history of Ovarian cancer Prostate cancer Colorectal cancer Social History Smoking Status: Never smoker Second Hand Exposure: No; Do You Dip or Chew Tobacco: No; Hx Alcohol Use: No Hx Substance Use: No Preferred Language: Kazakh Communication Ability: Effective Visual Impairment: No Limitations Hearing Ability: Normal 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 Beliefs That Will Affect Care: None marital status: Current Living Situation: Spouse current occupational status: retired Feels Safe at Home: Yes Childhood Exposure to Second-Hand Smoke: Yes Dental Care, Regularly: Yes Seatbelt Use: always Review of Systems Review of Systems: All systems reviewed & are unremarkable except as noted in HPI & below Physical Exam Constitutional: WD/WN, vitals as above Eyes: PERRL, conjunctivae normal, anicteric sclerae ENMT: external ear and nose normal, oropharynx normal Neck: trachea midline, no thyromegaly Respiratory: normal respiratory effort, lungs clear to auscultation Cardiovascular: RRR, no murmur, no edema Gastrointestinal (Abdomen): normal bowel sounds, soft, nontender, no hepatosplenomegaly Skin: + pallor (lips) Neurologic: moves all extremities and awake; not confused Psychiatric: A+Ox3, euthymic affect Results & Data Results & Data Vital Signs (Past 12 Hours) Vital Signs Temp Pulse Resp BP Pulse Ox O2 Del Method O2 Flow Rate 03/15/24 09:30 108 H 16 147/90 H 98 Nasal Cannula 2 03/15/24 09:26 112 H 18 142/88 H 99 Nasal Cannula 2 03/15/24 09:19 121 H 03/15/24 09:16 36.7 C 117 H 18 145/95 H 100 Nasal Cannula 2 Laboratory Results Abnormal lab results 03/15/24 03/15/24 03/15/24 Range/Units 09:19 11:03 11:36 WBC (4.8-10.8) K/ul RBC 4.05 L (4.20-5.40) M/uL Hct 35.6 L (37.0-47.0) % Neut # (Auto) (1.40-6.50) K/uL [place] # (Auto) 0.83 H (0.11-0.59) K/uL Sodium (136-145) mmol/L BUN 26 H (6-23) mg/dl Creatinine (0.6-1.2) mg/dl BUN/Creatinine Ratio 23.0 H (10-20) Glucose 170 H (70-99(Fasting)) mg/dl POC Glucose 171 H (70-99) mg/dl Magnesium 1.5 L (1.7-2.4) mg/dl Troponin I High Sens 1374.0 H* 2608.5 H* D (0-14) pg/ml Diagnostic Findings XR chest 1V portable CLINICAL HISTORY: Chest pain, nonspecific COMPARISON STUDY: No previous studies for comparison. FINDINGS: Lung volumes are normal. Lungs are clear. There is no pneumothorax or pleural effusion. Cardiac size is normal. A small hiatal hernia is present. There is no evidence for pulmonary edema. IMPRESSION: No acute cardiopulmonary findings. Medications Administered ER Medications Given: None ECG Rate (beats per minute): 112 Rhythm: sinus tachycardia Findings: + ST elevation (Anterolateral) Comparison ECG Date: from (Jan 14, 1995) Change: the following changes noted (Acute anterolateral infarct now present) Code Status & VTE Plan Code Status Full VTE Prophylaxis Plan VTE Prophylaxis will be ordered: Yes PG Care Time/CCT Total # of Minutes Spent Total Time Spent with Patient: Total time spent is greater than 50% in coordination of care (as documented) at patient's floor/unit and/or counseling patient: Coding Level of Care Code 74607 INT INP/OBS CARE 3/75MIN Diagnoses Takotsubo cardiomyopathy I51.81 DM type 2 (diabetes mellitus, type 2) E11.69 Diabetes mellitus complication status: with other specified complication Diabetes mellitus shelter insulin use: without parts counterman use Hypertension I10 Hypertension type: unspecified Lumbar pain with radiation down both legs M54.50; M79.604; M79.605 Hyperlipemia E78.5 GERD (gastroesophageal reflux disease) K21.9 Irritable bowel syndrome with diarrhea K58.0 (2) DM type 2 (diabetes mellitus, type 2) Diabetes mellitus complication status: with other specified complication Diabetes mellitus shelter insulin use: without shelter use Qualified Code(s): E11.69 - Type 2 diabetes mellitus with other specified complication (3) Hypertension Hypertension type: unspecified Qualified Code(s): I10 - Essential (primary) hypertension
--- NOTE | 2024-03-15 11:12 | Cardiology Consultation ---
Date of Consultation March 15, 2024 Assessment & Plan (1) Takotsubo cardiomyopathy: We will obtain an echocardiogram to completely evaluate LVEF and valves. This presentation does not represent an acute coronary syndrome. Any elevated troponin would be secondary to the cardiomyopathy. On my examination she does not demonstrate evidence of volume overload at this time. She will be placed on optimized heart failure regimen for severe LV systolic dysfunction. Beginning with carvedilol 3.125 mg p.o. twice daily, Entresto 26/24 mg p.o. twice daily, Jardiance 10 mg daily (could be changed to 25 mg for diabetes if hospitalist feels appropriate), and she will remain on Bumex although we will make it 1 mg daily as she has elevated left ventricular pressures. We will also request a wearable defibrillator with plan to reassess her EF after 3 months therapy. Her electrolytes need to be maintained within normal limits to reduce the likelihood of ventricular arrhythmia. (2) Hypertension: Current blood pressure is elevated. However I am not sure what medications she took this morning prior to arrival. We are changing her medical regimen to include carvedilol and Entresto which certainly will drop her blood pressure to some degree. Will have to adjust after she is taken these medications. (3) Hyperlipemia: Patient is considered high risk (diabetes). High intensity statin therapy is recommended. She was previously on simvastatin 20 mg daily. However, simvastatin has blackbox warning on higher doses in combination with some medications which she will need to take. It is easier to manage if we change her to a atorvastatin in place of simvastatin as the interaction profile is less risky. History of Present Illness Reason for Consultation: Heart alert Attending Physician: Mandeep Pizano MD, PhD History of Present Illness 73-year-old female without prior cardiac history but with comorbid disease including hypertension, dyslipidemia, and diabetes type 2 presented after developing chest discomfort. EKG obtained by EMS on arrival demonstrated significant abnormalities including borderline ST elevations. Therefore, a "heart alert" was called. On my arrival the patient had just herself arrived via EMS. She stated that her chest pain was significantly improved compared to prior to their arrival. She did receive aspirin, morphine, and nitroglycerin. The EKG performed in the emergency department showed diffuse abnormalities suggestive of ST elevation in the anterior anterolateral and inferior leads not meeting criteria for acute ST elevation [place]. She had an incomplete right bundle branch block and a left anterior fascicular block. She was tachycardic on the monitor. Her chest pain was significantly reduced but not completely resolved. After review of her risk factors, presenting symptoms, and the EKG decision was made to proceed with coronary angiography plus or minus PCI as indicated. Informed consent was obtained from the patient and her family in the emergency department. Patient was then transported to the cardiac catheterization lab where she underwent diagnostic coronary angiography via the right radial artery approach. This demonstrated normal coronaries without an acute lesion. Her left ventriculogram was consistent with Takotsubo cardiomyopathy. Upon further discussion with the patient she tells me that her brother recently (cancer), and they had his service yesterday. She tells me she was close to him and his loss was difficult. She denies any recent syncope, dyspnea on exertion, orthopnea, PND, racing heartbeat, palpitations, or edema. Post catheterization she still mildly sedated but denies any ongoing discomfort. I discussed the findings with both the patient and with her family. Patient is now admitted to the ICU for further workup and management. Allergies Allergy/AdvReac Type Severity Reaction Status Date / Time inositol niacinate AdvReac Mild turned red Verified 01/21/24 10:08 [From Niacin No Flush] niacin [From Niacin No Flush] AdvReac Mild turned red Verified 01/21/24 10:08 Home Medications Medication Instructions Recorded Confirmed Type jqjpiark-pvc-snscj acid 0.4 1 tab PO DAILY 12/09/20 01/21/24 History mg-lycopene 300 mcg-lutein 250 mcg tablet (Centrum Silver) omega-3 fatty acids [Fish Oil] PO 12/09/20 01/21/24 History one touch ultra mini #1 ea 09/25/22 01/21/24 Rx clotrimazole-betamethasone 1 1 applic topical BID #15 grams 01/10/23 01/21/24 Rx %-0.05 % topical cream blood sugar diagnostic (OneTouch #100 ea 01/11/23 01/21/24 Rx Ultra Test strips) lancets 33 gauge (OneTouch Delica #100 ea 01/11/23 01/21/24 Rx Lancets) estradiol 0.01% (0.1 mg/gram) 1 g vaginal .COMPLEX #42.5 grams 02/06/23 01/21/24 Rx vaginal cream (Estrace) clobetasol 0.05 % topical ointment 1 applic topical BID #45 grams 05/20/23 01/21/24 Rx calcium carbonate (Calcium 500) 500 mg PO DAILY 06/03/23 01/21/24 History cholecalciferol (vitamin D3) 25 25 mcg PO DAILY 06/03/23 01/21/24 History mcg (1,000 unit) capsule lactobacillus combination no.9 4 4,000 mmu cells PO DAILY 06/03/23 01/21/24 History billion cell capsule (Adult 50 Plus Probiotic) metformin 500 mg tablet,extended 500 mg PO DAILY #90 tabs 09/13/23 01/21/24 Rx release 24 hr simvastatin 20 mg tablet 20 mg PO DAILY #90 tabs 09/13/23 01/21/24 Rx gabapentin 100 mg capsule 200 - 300 mg (2 - 3 x 100 mg) PO 10/24/23 01/21/24 Rx HS neuropathy #90 caps metoprolol tartrate 25 mg tablet 25 mg PO BID #180 tabs 10/24/23 01/21/24 Rx bumetanide 1 mg tablet 0.5 mg (1/2 x 1 mg) PO DAILY #45 11/27/23 01/21/24 Rx tabs dicyclomine 10 mg capsule 10 mg PO TID #270 caps 11/27/23 01/21/24 Rx dexamethasone [Dexamethasone PO 01/20/24 01/21/24 History Intensol] naproxen 375 mg tablet 375 mg PO DAILY #90 tabs 02/13/24 Rx omeprazole 20 mg capsule,delayed 20 mg PO DAILY #90 caps 02/13/24 Rx release olmesartan 40 mg tablet 40 mg PO DAILY #90 tabs 02/14/24 Rx Patient History Medical History Lumbosacral radiculopathy Lumbosacral spondylosis Lumbar pain with radiation down both legs Osteopenia Irritable bowel syndrome with diarrhea GERD (gastroesophageal reflux disease) Type 2 diabetes mellitus with peripheral neuropathy Mixed hyperlipidemia Primary hypertension Surgical History Hx of colonoscopy 2020 History of surgery on lower extremity 2002 Family History Aunt Breast cancer Grandmother (Maternal) Breast cancer Diabetes Father Myocardial infarction Grandfather Cancer Mother Heart disease Hypertension Father Heart disease Brother Cancer leukemia, gallbladder and liver Denies family history of Ovarian cancer Prostate cancer Colorectal cancer Social History Smoking Status: Never smoker Second Hand Exposure: Yes; Do You Dip or Chew Tobacco: No; Hx Alcohol Use: No Hx Substance Use: No Visual Impairment: No Limitations Hearing Ability: Normal marital status: Current Living Situation: Spouse current occupational status: retired Feels Safe at Home: Yes Childhood Exposure to Second-Hand Smoke: Yes Dental Care, Regularly: Yes Seatbelt Use: always Review of Systems Review of Systems: Negative except as per HPI Physical Exam Constitutional: WD/WN, vitals as above Eyes: Extraocular muscles intact. Sclera are anicteric. ENMT: Oral mucosa is pink moist and intact Neck: No JVD appreciated. No bruits. Respiratory: Clear to auscultation bilaterally. No wheezing, rhonchi, or rales. Cardiovascular: Tachycardic rate, regular rhythm. S4 gallop. Do not appreciate any murmurs. No edema at this time. Musculoskeletal: no cyanosis or clubbing, extremities motor strength 5/5 (Right radial access site with TR band in place.) Neurologic: Cognition is intact. Speech is fluent. No focal deficits. No tremor. Psychiatric: A+Ox3, euthymic affect Results & Data Vital Signs (Past 12 Hours) Vital Signs Temp Pulse Resp BP Pulse Ox O2 Del Method O2 Flow Rate 03/15/24 09:30 108 H 16 147/90 H 98 Nasal Cannula 2 03/15/24 09:26 112 H 18 142/88 H 99 Nasal Cannula 2 03/15/24 09:19 121 H 03/15/24 09:16 36.7 C 117 H 18 145/95 H 100 Nasal Cannula 2 PG Care Time/CCT Total # of Minutes Spent Total Time Spent with Patient: Total time spent is greater than 50% in coordination of care (as documented) at patient's floor/unit and/or counseling patient: 65 minutes of critical care time was spent in the initial examination of the patient, review of the records, discussion with emergency department staff, [employer] Nurs[employer] Worker staff, patient, and her family. This time was also spent in formulation and implementation of a plan of care and all associated documentation. This time is exclusive of the time spent for the procedure. Coding Level of Care Code 27277 CRITICAL CARE 1ST 30-74M Diagnoses Takotsubo cardiomyopathy I51.81 Hypertension I10 Hyperlipemia E78.5 Time Spent (min) 65
[2024-03-15] MEDS ORDERED: PHARMACY GLYCEMIC MGMT CONSULT PRN (11:16)
--- NOTE | 2024-03-15 11:18 | Critical Care Consultation ---
Date of Consultation March 15, 2024 Assessment & Plan (1) Takotsubo cardiomyopathy: Cardiology has initiated the patient on Entresto, Jardiance, beta-blockade with carvedilol and statin. She was also started on 1 mg Bumex daily given elevated LVEDP noted on cath. No dual antiplatelet therapy required at this time as there is no significant blockages on heart cath. She has evidence of Takotsubo's cardiomyopathy. (2) Type 2 diabetes mellitus with peripheral neuropathy: Continue to monitor glucoses closely and maintain normoglycemia. (3) Irritable bowel syndrome with diarrhea: Patient with some nausea which may be related to her cardiac symptoms. Monitor closely. Patient will be given a dose of Phenergan Plan Suspect she can be transferred out of the ICU likely tomorrow. History of Present Illness Reason for Consultation: Takotsubo cardiomyopathy Attending Physician: Mandeep Pizano MD, PhD History of Present Illness 73-year-old female with a history of arthritis, hypertension, GERD and diabetes mellitus type 2 presenting to the hospital due to ongoing chest pain. EKG revealed borderline ST segment elevations and a heart alert was called. Interventional cardiology evaluated the patient and her pain did improve with nitroglycerin and morphine. There were diffuse ST segment elevations to the anterior and anterior lateral leads. She was taken to the cardiac Courseware Developer and was found to have normal coronary arteries. She had a severely reduced EF consistent with Takotsubo's. She was placed on Entresto, Jardiance, Bumex and carvedilol by the cardiology service. Labs are generally unrevealing aside for significantly elevated troponin. LDL was 53 and HDL is 42. Chest x-ray reviewed by me without acute pulmonary findings. She notes that her symptoms started with left-sided chest pain. She denies any significant dyspnea or diaphoresis associated with the pain. The pain has improved, but she has some mild nausea now. Patient notes that she had a significant stressor recently as her sibling of cancer about 1 week ago. Allergies Allergy/AdvReac Type Severity Reaction Status Date / Time inositol niacinate AdvReac Mild turned red Verified 01/21/24 10:08 [From Niacin No Flush] niacin [From Niacin No Flush] AdvReac Mild turned red Verified 01/21/24 10:08 Home Medications Medication Instructions Recorded Confirmed Type dhjguxcg-ckm-kvsdv acid 0.4 1 tab PO DAILY 12/09/20 01/21/24 History mg-lycopene 300 mcg-lutein 250 mcg tablet (Centrum Silver) omega-3 fatty acids [Fish Oil] PO 12/09/20 01/21/24 History one touch ultra mini #1 ea 09/25/22 01/21/24 Rx clotrimazole-betamethasone 1 1 applic topical BID #15 grams 01/10/23 01/21/24 Rx %-0.05 % topical cream blood sugar diagnostic (OneTouch #100 ea 01/11/23 01/21/24 Rx Ultra Test strips) lancets 33 gauge (OneTouch Delica #100 ea 01/11/23 01/21/24 Rx Lancets) estradiol 0.01% (0.1 mg/gram) 1 g vaginal .COMPLEX #42.5 grams 02/06/23 01/21/24 Rx vaginal cream (Estrace) clobetasol 0.05 % topical ointment 1 applic topical BID #45 grams 05/20/23 01/21/24 Rx calcium carbonate (Calcium 500) 500 mg PO DAILY 06/03/23 01/21/24 History cholecalciferol (vitamin D3) 25 25 mcg PO DAILY 06/03/23 01/21/24 History mcg (1,000 unit) capsule lactobacillus combination no.9 4 4,000 mmu cells PO DAILY 06/03/23 01/21/24 History billion cell capsule (Adult 50 Plus Probiotic) metformin 500 mg tablet,extended 500 mg PO DAILY #90 tabs 09/13/23 01/21/24 Rx release 24 hr simvastatin 20 mg tablet 20 mg PO DAILY #90 tabs 09/13/23 01/21/24 Rx gabapentin 100 mg capsule 200 - 300 mg (2 - 3 x 100 mg) PO 10/24/23 01/21/24 Rx HS neuropathy #90 caps metoprolol tartrate 25 mg tablet 25 mg PO BID #180 tabs 10/24/23 01/21/24 Rx bumetanide 1 mg tablet 0.5 mg (1/2 x 1 mg) PO DAILY #45 11/27/23 01/21/24 Rx tabs dicyclomine 10 mg capsule 10 mg PO TID #270 caps 11/27/23 01/21/24 Rx dexamethasone [Dexamethasone PO 01/20/24 01/21/24 History Intensol] naproxen 375 mg tablet 375 mg PO DAILY #90 tabs 02/13/24 Rx omeprazole 20 mg capsule,delayed 20 mg PO DAILY #90 caps 02/13/24 Rx release olmesartan 40 mg tablet 40 mg PO DAILY #90 tabs 02/14/24 Rx Patient History Medical History Lumbosacral radiculopathy Lumbosacral spondylosis Lumbar pain with radiation down both legs Osteopenia Irritable bowel syndrome with diarrhea GERD (gastroesophageal reflux disease) Type 2 diabetes mellitus with peripheral neuropathy Mixed hyperlipidemia Primary hypertension Surgical History Hx of colonoscopy 2020 History of surgery on lower extremity 2002 Family History Aunt Breast cancer Grandmother (Maternal) Breast cancer Diabetes Father Myocardial infarction Grandfather Cancer Mother Heart disease Hypertension Father Heart disease Brother Cancer leukemia, gallbladder and liver Denies family history of Ovarian cancer Prostate cancer Colorectal cancer Social History Smoking Status: Never smoker Second Hand Exposure: Yes; Do You Dip or Chew Tobacco: No; Hx Alcohol Use: No Hx Substance Use: No Visual Impairment: No Limitations Hearing Ability: Normal marital status: Current Living Situation: Spouse current occupational status: retired Feels Safe at Home: Yes Childhood Exposure to Second-Hand Smoke: Yes Dental Care, Regularly: Yes Seatbelt Use: always Review of Systems Review of Systems: All systems reviewed & are unremarkable except as noted in HPI & below Physical Exam Physical Exam: Constitutional: Patient appears to be of their stated age. Patient is in no apparent distress. Patient is well-developed. Eyes: Pupils are equal round and reactive to light. Conjunctivae are normal. Anicteric sclera. Ears nose, mouth and throat: Mallampati class 2. Normal posterior oropharynx. Uvula is midline. Neck: Trachea is midline. Visual inspection is normal. Respiratory: Clear to auscultation bilaterally. No use of accessory muscles. No significant clubbing noted. Cardiovascular: Regular rate and rhythm. No murmurs. No edema. Gastrointestinal: Normal bowel sounds, soft, nontender and nondistended. No hepatosplenomegaly noted. Musculoskeletal: No cyanosis. Patient is able to move all extremities. Strength is 5 out of 5 in the upper and lower extremities. Skin: No rashes, warm dry and intact. Neurologic: No obvious focal neurological deficits seen. Psychiatric: Alert and oriented x3 with a euthymic affect. Results & Data Results & Data Vital Signs (Past 12 Hours) Vital Signs Temp Pulse Resp BP Pulse Ox O2 Del Method O2 Flow Rate 03/15/24 09:30 108 H 16 147/90 H 98 Nasal Cannula 2 03/15/24 09:26 112 H 18 142/88 H 99 Nasal Cannula 2 03/15/24 09:19 121 H 03/15/24 09:16 36.7 C 117 H 18 145/95 H 100 Nasal Cannula 2 Coding Level of Care Code 77712 IN/OBS CONSULT LVL 3,45M Diagnoses Takotsubo cardiomyopathy I51.81 Type 2 diabetes mellitus with peripheral neuropathy E11.42 Irritable bowel syndrome with diarrhea K58.0
--- NOTE | 2024-03-15 11:36 | Pharmacy Report ---
Pharmacy Glycemic Short Note 2 - Date of Service March 15, 2024 - Glycemic Short BSG Results (Last 24 hours): 03/15/24 09:19 Glucose 170 H OUTPATIENT ANTIDIABETIC REGIMEN: * Metformin 500mg PO Daily * A1c 6% 09/10/23, updated A1c ordered ASSESSMENT: * 73 yo F admitted with chest pain, PMH DM2, updated A1c pending, managed on only metformin at home, cariology starting optimized heart failure regimen for severe LV systolic dysfunction including Jardiance 10mg, may increase to 25mg per hospitalist. * Will begin with NovoLog only and add basal insulin if this is insufficient to maintain goal blood sugar. PLAN FOR INPATIENT GLYCEMIC CONTROL: * Hold metformin * Jardiance 10mg PO daily starting 03/16 * Basal insulin * Lantus 10 units SQ HS for BSG > 180mg/dl * Bolus insulin * NovoLog per scale ACHS or Q6hrs while NPO * Goal Range: Low 110 mg/dL - High 140 mg/dL * Correction Factor: 35 mg/dL/unit * Nutritional / Prandial insulin per carb ratio of 1 unit per 15 grams CHO consumed
[2024-03-15] MEDS: HEPARIN (PORCINE) 1000 UNIT/ML 10 ML (CATH LAB USE ONLY) ONE (11:40)
[2024-03-15] MEDS: niCARdipine HCL INJ 2.5 MG/ML 10 ML AMP ONE (11:40)
[2024-03-15] MEDS: MIDAZOLAM HCL 1 MG/ML 2ML VIAL ONE (11:40)
[2024-03-15] MEDS: fentaNYL citrate PF 100 MCG/2 ML VIAL ONE (11:40)
[2024-03-15] MEDS: NITROGLYCERIN/D5W 100MCG/ML 20ML SYR ONE (11:41)
[2024-03-15] MEDS: OPTIRAY 350 ONE (11:41)
[2024-03-15] MEDS: TICAGRELOR 90 MG TAB ONE (11:42)
[2024-03-15] MEDS ORDERED: DEXTROSE 50% 50 ML SYRINGE IV PRN (11:45)
[2024-03-15] MEDS ORDERED: GLUCOSE 10 TAB/TUBE PO PRN (11:45)
[2024-03-15] MEDS ORDERED: GLUCOSE 40% GEL 15 GM TUBE PO PRN (11:45)
[2024-03-15] MEDS ORDERED: GLUCAGON FOR INJ 1 MG VIAL IM PRN (11:45)
[2024-03-15] MEDS ORDERED: CARBOHYDRATES FOR HYPOGLYCEMIA PO PRN (11:45)
[2024-03-15] MEDS: PROMETHAZINE HCL 6.25 MG in SODIUM CHLORIDE 0.9% 50 ML IV ONE (11:51)
[2024-03-15] MEDS: carvediloL 3.125 MG TAB PO STA (11:51)
[2024-03-15] MEDS: FAMOTIDINE 20MG IV PUSH 20 MG/5 ML SYR IV STA (11:51)
[2024-03-15] MEDS: MAGNESIUM SULFATE / D5W 1 GM/100 ML BAG IV STA (11:55)
[2024-03-15] MEDS: INSULIN ASPART PER UNIT CHARGE SC SCH (11:58)
[2024-03-15] MEDS: BUMETANIDE 1 MG TAB PO SCH (12:46)
[2024-03-15] MEDS: PANTOprazole 40 MG in SYRINGE 0 ML IV SCH (12:47)
[2024-03-15] MEDS: MAGNESIUM SULFATE / D5W 1 GM/100 ML BAG IV SCH (13:54)
--- NOTE | 2024-03-15 14:09 | XCELERA ---
[id number] \\[email or web address]\[id number]
[2024-03-15] MEDS ORDERED: carvediloL 3.125 MG TAB PO SCH (17:00)
[2024-03-15] MEDS: carvediloL 3.125 MG TAB PO SCH (18:16)
[2024-03-15] MEDS: LANTUS PER UNIT CHARGE SC SCH (20:46)
[2024-03-15] MEDS: GABAPENTIN 100 MG CAP PO SCH (20:48)
[2024-03-15] MEDS: DICYCLOMINE HCL 10 MG CAP PO SCH (20:48)
[2024-03-15] MEDS: VALSARTAN/SACUBITRIL 26/24MG TAB PO SCH (20:48)
[2024-03-15] MEDS ORDERED: SIMVASTATIN 20 MG TAB PO SCH (21:00)
[2024-03-16 04:40] LABS: Basophils # (auto) 0.05 K/uL (0.00-0.20); Basophils % (auto) 0.4 %; Eosinophils # (auto) 0.11 K/uL (0.00-0.50); Eosinophils % (auto) 0.9 %; Hematocrit (blood only) 34.8 % (37.0-47.0); Hemoglobin 12.2 g/dl (12.0-16.0); Immature Granulocytes # (auto) 0.05 K/uL (0.01-0.20); Immature Granulocytes % (auto) 0.4 %; Lymphocytes # (auto) 2.24 K/uL (1.20-3.40); Lymphocytes % (auto) 18.6 %; Mean Corpuscular Hemoglobin 30.7 pg (25.0-34.0); Mean Corpuscular Hgb Conc 35.1 g/dL (32.0-36.0); Mean Corpuscular Volume 87.7 fL (80.0-100.0); Mean Platelet Volume 9.6 fL (9.4-12.4); Monocytes % (auto) 9.1 %; Neutrophils # (auto) 8.49 K/uL (1.40-6.50); Neutrophils % (auto) 70.6 %; Platelet Count 221 K/uL (130-400); RDW Coefficient of Variation 14.2 % (11.5-14.5); RDW Standard Deviation 45.1 fL (36.4-46.3); Red Blood Count 3.97 M/uL (4.20-5.40); White Blood Count 12.04 K/ul (4.8-10.8)
[2024-03-16 04:58] LABS: BUN Creatinine Ratio 18.4 (10-20); Calcium 9.1 mg/dl (8.6-10.3); Creatinine Clr Calc Pharmacy 30.2 ml/min; Est GFR (African American) 36.7 ml/min; Est GFR (Non-African American) 31.7 ml/min; Magnesium 2.1 mg/dl (1.7-2.4); Potassium 4.7 mmol/L (3.5-5.1)
[2024-03-16 05:22] LABS: Troponin I High Sensitivity 2198.4 pg/ml (0-14)
--- NOTE | 2024-03-16 06:00 | Electrocardiogram Report ---
Test Reason : Blood Pressure : / mmHG Vent. Rate : 112 BPM Atrial Rate : 112 BPM P-R Int : 178 ms QRS Dur : 114 ms QT Int : 354 ms P-R-T Axes : 027 -83 042 degrees QTc Int : 483 ms Sinus tachycardia Left axis deviation Incomplete right bundle branch block Inferior infarct , new When compared with ECG of 14-JAN-1995 10:26, Vent. rate has increased BY 53 BPM Incomplete right bundle branch block is now Present Acute Anterolateral infarct is now Present Acute Inferior infarct is now Present Confirmed by Jose Alfredo Mcfarland ([id number]) on 03/16/2024 6:00:02 AM Referred By: Confirmed By:Jose Alfredo Mcfarland
[2024-03-16 07:44] LABS: Estimated Average Glucose 126 mg/dl
[2024-03-16] MEDS: ATORVASTATIN 20 MG TAB PO SCH (08:19)
[2024-03-16] MEDS: EMPAGLIFLOZIN 10 MG TAB PO SCH (08:19)
--- NOTE | 2024-03-16 08:35 | Critical Care Progress Note ---
Date of Service March 16, 2024 Assessment & Plan (1) Takotsubo cardiomyopathy: (2) DM type 2 (diabetes mellitus, type 2): (3) Hypertension: (4) Lumbar pain with radiation down both legs: (5) Hyperlipemia: (6) GERD (gastroesophageal reflux disease): (7) Irritable bowel syndrome with diarrhea: Plan Neuro: Continue Gabapentin for radicular pain. Cardiac: TTE consistent with Takotsubo cardiomyopathy, EF 30-35%. Cardiology following. Continue Coreg, Jardiance, Lipitor. Entresto and Bumex held in the setting of KATE. Patient hemodynamically stable, likely candidate for downgrade later today. Resp: Stable on room air, monitor for signs of fluid overload. GI: Continue Bentyl for IBS, Protonix for GERD Renal: KATE - AM Cr 1.58 (baseline ~ 1.1) - possibly secondary to contrast vs ARB, will hold Entresto. Check AM BMP. Monitor electrolytes, target K>4, Mg>2 : No major considerations Endo: Glucose relatively well controlled, continue to monitor and maintain euglycemia. Heme: No major considerations ID: No major considerations Lines/Access: Peripheral access DVT ppx: ambulating, chemical DVT prophylaxis deferred. Admission and Anticipated Discharge Date Admission Date: March 15, 2024 Supervising Physician Co-Signing Physician Notes Dr. Burrell was the resident-physician during care of patient. I separately evaluated patient for goodwin portions of the history and the exam. I was present during the critical portion of medical decision making, and I discussed the case with the resident. I generally agree with the findings and plan except for any additions/exceptions noted. Patient seen and examined at bedside. No acute distress, no adverse events overnight. Patient's as well as daughter were in the room along with nephew Dr. Barba at the time of examination Patient denies any issues when it comes to her breathing. No chest pain, no dizziness, no palpitation Finished her breakfast without any issues. No nausea or vomiting. Constitutional: No acute distress HEENT: EOMI, PERRLA Respiratory system: Decreased air entry bilaterally, no wheeze, no rhonchi, mild crackles bilateral lower lobes CVS: S1-S2 positive, no murmurs or gallops Abdomen: Soft, nontender, nondistended, positive bowel sounds x4 Extremities: +2 pulses bilaterally radialis/ dorsalis pedis, no cyanosis, no edema Neuro: Awake alert oriented x3 Psych: Normal mood and affect G/U: No Le --Prophylaxis VTE: IPC GI: Pantoprazole Lines: Peripheral Diet: Cardiac Plan: In/out: -239, urine output 1500 mL Patient's creatinine did go up a little bit. It could be multifactorial from the cardiac cath as well as the Bumex from yesterday. Hold Bumex as well as Entresto today. Follow BMP in the morning Patient hemodynamically stable to be downgraded. Please note the above document was generated using voice recognition software. It may contain grammatical, syntax or spelling errors.Any formal questions or concerns about the content, text or information contained within the body of this dictation should be directly addressed to the provider for clarification. Subjective Patient evaluated this morning with family at bedside. Pt states that she overall feels well, denies chest pain, shortness of breath, lightheadedness, N/V. Review of Systems 2 Review of Systems: as per HPI Physical Exam 2 Physical Exam: Exam per attending Results & Data Results & Data Vital Signs (Past 12 Hours) Vital Signs Temp Pulse Resp BP BP Pulse Ox O2 Del Method 03/16/24 06:00 36.6 C 14 119/58 L 94 Room Air 03/16/24 05:00 118/59 L Room Air 03/16/24 05:00 89 12 93 03/16/24 04:16 103/75 03/16/24 04:16 102 H 17 96 03/16/24 04:00 79 12 98 Room Air 03/16/24 04:00 112/53 L 03/16/24 04:00 36.6 C 16 103/75 96 Room Air 03/16/24 03:45 85 12 94 Room Air 03/16/24 03:45 130/57 L 03/16/24 03:30 119/57 L 03/16/24 03:30 85 14 94 03/16/24 03:15 92 H 14 96 Room Air 03/16/24 03:15 123/60 03/16/24 03:00 116/58 L 03/16/24 03:00 85 12 98 Room Air 03/16/24 02:45 88 12 96 Room Air 03/16/24 02:45 114/59 L 03/16/24 02:30 115/60 03/16/24 02:30 86 13 96 03/16/24 02:15 119/55 L 03/16/24 02:15 91 H 14 91 Room Air 03/16/24 02:00 115/53 L 03/16/24 02:00 83 17 91 Room Air 03/16/24 02:00 36.5 C 14 115/60 95 Room Air 03/16/24 01:45 119/55 L 03/16/24 01:45 85 13 95 03/16/24 01:30 122/54 L 03/16/24 01:30 82 12 95 Room Air 03/16/24 01:15 87 13 96 03/16/24 01:15 113/60 03/16/24 01:00 124/63 Room Air 03/16/24 01:00 86 12 95 03/16/24 00:45 126/60 03/16/24 00:45 87 14 95 03/16/24 00:30 87 12 94 Room Air 03/16/24 00:30 125/62 03/16/24 00:15 117/62 03/16/24 00:15 88 12 93 03/16/24 00:00 129/59 L 03/16/24 00:00 88 12 95 Room Air 03/16/24 00:00 36.5 C 16 125/62 96 Room Air 03/16/24 00:00 102 H 03/15/24 23:45 126/67 03/15/24 23:45 89 14 94 03/15/24 23:30 117/61 03/15/24 23:30 81 12 95 Room Air 03/15/24 23:15 121/62 03/15/24 23:15 83 14 96 03/15/24 23:00 116/66 03/15/24 23:00 83 18 95 Room Air 03/15/24 22:45 118/69 03/15/24 22:45 94 H 17 98 03/15/24 22:30 120/58 L 03/15/24 22:30 80 14 95 Room Air 03/15/24 22:15 116/66 03/15/24 22:15 81 15 95 03/15/24 22:00 117/66 03/15/24 22:00 109 H 17 100 Room Air 03/15/24 21:45 135/77 04/21/24 21:45 86 13 97 03/15/24 21:30 114/70 03/15/24 21:30 83 14 96 Room Air 03/15/24 21:15 111/67 03/15/24 21:15 83 15 96 03/15/24 21:00 125/59 L 03/15/24 21:00 85 17 96 Room Air 03/15/24 20:45 132/74 03/15/24 20:45 87 15 97 03/15/24 20:36 147/73 H 03/15/24 20:36 92 H 17 98 Room Air Laboratory Results 03/16/24 04:12 03/16/24 04:12 Resident Activity Tracking Resident Involvement: Resident Care Provided Care Provided: Adult Hospital Medicine (2) DM type 2 (diabetes mellitus, type 2) Diabetes mellitus complication status: with other specified complication D iabetes mellitus terminal press operator insulin use: without terminal press operator use Qualified Code(s): E11.69 - Type 2 diabetes mellitus with other specified complication (3) Hypertension Hypertension type: unspecified Qualified Code(s): I10 - Essential (primary) hypertension
--- NOTE | 2024-03-16 10:39 | Electrocardiogram Report ---
Test Reason : Blood Pressure : / mmHG Vent. Rate : 092 BPM Atrial Rate : 092 BPM P-R Int : 210 ms QRS Dur : 128 ms QT Int : 410 ms P-R-T Axes : 052 -80 025 degrees QTc Int : 507 ms Sinus rhythm with 1st degree A-V block with Premature supraventricular complexes Left axis deviation Right bundle branch block Inferior infarct (cited on or before 15-MAR-2024) Anterolateral infarct (cited on or before 15-MAR-2024) Abnormal ECG When compared with ECG of 15-MAR-2024 09:19, Premature supraventricular complexes are now Present NH interval has increased Confirmed by Francisco Rodríguez ([id number]) on 03/16/2024 10:38:59 AM Referred By: Mandeep Pizano Confirmed By:Francisco Rodríguez
--- NOTE | 2024-03-16 10:39 | Billing Data ---
Date of Service March 16, 2024 Coding Level of Care Code 93564 SUB INP/OBS CARE
[2024-03-16] MEDS: RAPID SEQUENCE INDUCTION BAG ONE (15:57)
[2024-03-16] MEDS: PROPOFOL IV EMULSION 10 MG/ML 100 ML VIAL IV ONE (15:57)
--- NOTE | 2024-03-16 21:04 | Hospitalist Progress Note ---
Date of Service March 16, 2024 Assessment & Plan (1) Takotsubo cardiomyopathy: Plan: Presented with ST elevations on EKG with chest pain Normal coronary arteries on cardiac cath - diagnosed with Takutsubo's cardiomyopathy (went to her brother [facility] yesterday) Switch metoprolol for carvedilol Switch olmesartan for Entresto BUmex on hold for now. Vitals signs have stablized. will transfer out of the ICU. will monitor renal function. (2) DM type 2 (diabetes mellitus, type 2): Plan: Hemoglobin A1C 6.0 in Aug 2023, repeat with AM labs Stop metformin Jardiance added by cardiology Consult pharmacy for glycemic control (3) Hypertension: Plan: Monitor BP with multiple anti-hypertensives switched as above (4) Lumbar pain with radiation down both legs: Plan: Continue gabapentin 200mg HS (5) Hyperlipemia: Plan: Switch from simvastatin to atorvastatin per cardiology recommendations due to interactions (6) GERD (gastroesophageal reflux disease): Plan: Switch from omeprazole to pantoprazole per hospital formulary Currently will give IV due to nausea (7) Irritable bowel syndrome with diarrhea: Plan: Continue dicyclomine Plan VTE Prophylaxis - defer to ICU Diet - T2DM, heart healthy Admission and Anticipated Discharge Date Admission Date: March 15, 2024 Subjective 73 yo female reports having a rough night. SHe denies any new symptoms. Review of Systems Review of Systems: All systems reviewed & are unremarkable except as noted in HPI & below Physical Exam Constitutional: WD/WN, vitals as above Eyes: PERRL, conjunctivae normal, anicteric sclerae ENMT: external ear and nose normal, oropharynx normal Neck: trachea midline, no thyromegaly Respiratory: normal respiratory effort, lungs clear to auscultation Cardiovascular: RRR, no murmur, no edema Gastrointestinal (Abdomen): normal bowel sounds, soft, nontender, no hepatosplenomegaly Neurologic: moves all extremities and awake; not confused Psychiatric: A+Ox3, euthymic affect Results & Data Results & Data Vital Signs (Past 12 Hours) Vital Signs Temp Pulse Resp BP Pulse Ox O2 Del Method 03/16/24 19:00 37.3 C 115 H 18 127/54 L 96 Room Air 03/16/24 19:00 127/54 L 03/16/24 19:00 115 H 21 96 Room Air 03/16/24 18:00 93/65 L 03/16/24 18:00 114 H 19 96 03/16/24 17:00 111 H 18 96 03/16/24 17:00 104/61 03/16/24 16:27 116/74 03/16/24 16:27 93 H 19 96 Room Air 03/16/24 16:07 36.8 C 03/16/24 16:00 87 19 03/16/24 15:00 107 H 11 L 03/16/24 14:00 103 H 12 03/16/24 13:00 107 H 23 03/16/24 12:15 36.6 C 03/16/24 12:00 115 H 19 94 Room Air 03/16/24 12:00 107/65 03/16/24 11:00 95/54 L 03/16/24 11:00 108 H 16 97 03/16/24 10:00 101 H 15 95 03/16/24 10:00 99/52 L PG Care Time/CCT Total # of Minutes Spent Total Time Spent with Patient: Total time spent is greater than 50% in coordination of care (as documented) at patient's floor/unit and/or counseling patient: Coding Level of Care Code 54286 SUB INP/OBS CARE 235MIN Diagnoses Takotsubo cardiomyopathy I51.81 DM type 2 (diabetes mellitus, type 2) E11.69 Diabetes mellitus complication status: with other specified complication Diabetes mellitus intermediate frame tender insulin use: without usp use Hypertension I10 Hypertension type: unspecified Lumbar pain with radiation down both legs M54.50; M79.604; M79.605 Hyperlipemia E78.5 GERD (gastroesophageal reflux disease) K21.9 Irritable bowel syndrome with diarrhea K58.0 (2) DM type 2 (diabetes mellitus, type 2) Diabetes mellitus complication status: with other specified complication Diabetes mellitus intermediate frame tender insulin use: without intermediate frame tender use Qualified Code(s): E11.69 - Type 2 diabetes mellitus with other specified complication (3) Hypertension Hypertension type: unspecified Qualified Code(s): I10 - Essential (primary) hypertension
[2024-03-17 04:52] LABS: Hematocrit (blood only) 34.3 % (37.0-47.0); Hemoglobin 12.1 g/dl (12.0-16.0); Mean Corpuscular Hemoglobin 30.7 pg (25.0-34.0); Mean Corpuscular Hgb Conc 35.3 g/dL (32.0-36.0); Mean Corpuscular Volume 87.1 fL (80.0-100.0); Mean Platelet Volume 9.7 fL (9.4-12.4); Platelet Count 210 K/uL (130-400); RDW Coefficient of Variation 14.3 % (11.5-14.5); RDW Standard Deviation 45.5 fL (36.4-46.3); Red Blood Count 3.94 M/uL (4.20-5.40); White Blood Count 11.66 K/ul (4.8-10.8)
[2024-03-17 05:19] LABS: BUN Creatinine Ratio 19.4 (10-20); Calcium 8.8 mg/dl (8.6-10.3); Creatinine Clr Calc Pharmacy 21.9 ml/min; Est GFR (Non-African American) 21.6 ml/min; Potassium 4.8 mmol/L (3.5-5.1); Troponin I High Sensitivity 2289.2 pg/ml (0-14)
--- NOTE | 2024-03-17 12:04 | Pharmacy Report ---
Pharmacy Glycemic Short Note 2 - Date of Service March 17, 2024 - Glycemic Short BSG Results (Last 24 hours): 03/16/24 03/16/24 03/17/24 16:26 20:12 04:10 Glucose 132 H POC Glucose 186 H 225 H 03/17/24 03/17/24 07:23 11:11 Glucose POC Glucose 195 H 166 H OUTPATIENT ANTIDIABETIC REGIMEN: * Metformin 500 mg PO Daily * HbA1c: 6% (03/16/24) ASSESSMENT: 03/17: * Henna received 27 units of insulin yesterday, 10 basal + 17 bolus. BSGs were: [phone] mg/dL. * Fasting BSG elevated at 195 mg/dL this AM. Unsure of cause, maybe overnight snacking? * No adjustment to basal today. Continue with scaled HS dose for BSG > 180 mg/dL. May need to increase basal tomorrow if fasting continues to trend up. SCr continues to trend up, almost doubled from day of admission so may start to retain long acting insulin. * Tightened CF and CR today given trend upward in postprandials yesterday. Patient remains on Jardiance 10 mg PO daily. * Ordered and tolerating a T2DM/heart healthy diet. 03/15: * 73 yo F admitted with chest pain, PMH DM2, updated A1c pending, managed on only metformin at home, cariology starting optimized heart failure regimen for severe LV systolic dysfunction including Jardiance 10mg, may increase to 25mg per hospitalist. * Will begin with NovoLog only and add basal insulin if this is insufficient to maintain goal blood sugar. PLAN FOR INPATIENT GLYCEMIC CONTROL: * Hold outpatient Metformin * Jardiance 10mg PO daily * Basal insulin * Lantus 10 units SQ HS for BSG > 180mg/dl * Bolus insulin * NovoLog per scale ACHS or Q6hrs while NPO * Goal Range: Low 110 mg/dL - High 140 mg/dL * Correction Factor: 25 mg/dL/unit * Nutritional / Prandial insulin per carb ratio of 1 unit per 8 grams CHO consumed
[2024-03-17] MEDS: SODIUM CHLORIDE 0.9% 1,000 ML IV SCH (13:06)
[2024-03-17 17:03] LABS: Est GFR (African American) 26.3 ml/min; Est GFR (Non-African American) 22.7 ml/min
[2024-03-17 17:16] LABS: Troponin I High Sensitivity 2088.1 pg/ml (0-14)
[2024-03-17] MEDS ORDERED: Heparin IV Adult Wt-Based Standard *NO* INITIAL Bolus Protocol IV STA (18:55)
[2024-03-17] MEDS: METOPROLOL TARTRATE 1 MG/ML VIAL IV STA (19:04)
[2024-03-17] MEDS: METOPROLOL TARTRATE 1 MG/ML VIAL IV ONE (19:06)
[2024-03-17] MEDS ORDERED: MoRPHine SULFATE 2 MG/ML CARP IV PRN (19:32)
[2024-03-17 19:50] LABS: Partial Thromboplastin Ratio 1.2; Partial Thromboplastin Time 33 Seconds (21-31)
[2024-03-17 20:01] LABS: Basophils # (auto) 0.04 K/uL (0.00-0.20); Basophils % (auto) 0.3 %; Eosinophils # (auto) 0.23 K/uL (0.00-0.50); Eosinophils % (auto) 1.9 %; Hematocrit (blood only) 31.9 % (37.0-47.0); Hemoglobin 11.2 g/dl (12.0-16.0); Immature Granulocytes # (auto) 0.06 K/uL (0.01-0.20); Immature Granulocytes % (auto) 0.5 %; Lymphocytes # (auto) 2.09 K/uL (1.20-3.40); Lymphocytes % (auto) 17.2 %; Mean Corpuscular Hemoglobin 30.8 pg (25.0-34.0); Mean Corpuscular Hgb Conc 35.1 g/dL (32.0-36.0); Mean Corpuscular Volume 87.6 fL (80.0-100.0); Mean Platelet Volume 9.5 fL (9.4-12.4); Monocytes # (auto) 1.34 K/uL (0.11-0.59); Neutrophils # (auto) 8.39 K/uL (1.40-6.50); Neutrophils % (auto) 69.1 %; Platelet Count 198 K/uL (130-400); RDW Coefficient of Variation 14.4 % (11.5-14.5); RDW Standard Deviation 46.5 fL (36.4-46.3); Red Blood Count 3.64 M/uL (4.20-5.40); White Blood Count 12.15 K/ul (4.8-10.8)
[2024-03-17 20:13] LABS: Albumin Globulin Ratio 1.4 (0.9-2); Albumin Level 3.3 gm/dl (3.4-5.0); BUN Creatinine Ratio 21.3 (10-20); Bilirubin,Total 0.5 mg/dl (0.2-1.0); Calcium 8.2 mg/dl (8.6-10.3); Creatinine Clr Calc Pharmacy 21.7 ml/min; Est GFR (African American) 25.9 ml/min; Est GFR (Non-African American) 22.3 ml/min; Globulin 2.4 gm/dl (2.5-4.0); Phosphorus 4.7 mg/dl (2.5-4.9); Total Protein 5.7 gm/dl (6.0-8.3)
[2024-03-17 20:24] LABS: Troponin I High Sensitivity 1662.3 pg/ml (0-14)
[2024-03-17] MEDS: NITROGLYCERIN SL 0.4 MG/TAB TAB SL STA (20:29)
[2024-03-17] MEDS: HEPARIN SODIUM/DEXTROSE 25,000 UNITS/500 ML BAG IV SCH (20:29)
[2024-03-17] MEDS: LORazepam 0.25 MG in SYRINGE 0.125 ML IV STA (20:30)
--- NOTE | 2024-03-17 20:31 | Intensivist Progress Note ---
Date of Service March 17, 2024 Assessment & Plan (1) Takotsubo cardiomyopathy: Plan: Impression: 73-year-old female represents to the ICU following STEMI with nonischemic cardiomyopathy and new development of acute renal failure, now with ongoing chest pain and increased ST elevation in EKG precordial leads. Neuro - [facility] ICU: Negative Cardiac - Takotsubo's cardiomyopathypatient with initial presentation of ST elevation HI, status post unremarkable cardiac catheterization. TTE with EF 30 to 35%, and consistent with Takotsubo's cardiomyopathy. Patient did recently lose a relative and thought to be stress induced/nonischemic -Patient with new development of chest pain this evening. Repeat EKG shows ST-T wave elevation in precordial leads -Reviewed by interventional cardiology. Ischemic event unlikely given recent cardiac cath. Cannot rule out pericarditis, and starting on colchicine -No clear indication for systemic anticoagulation at this time -Treat pain as needed -Appreciate cardiology recommendations -Will monitor in ICU overnight HTNcontinue Coreg HLDcontinue statin Respiratory - No history of pulmonary disease. Currently maintaining her saturation on room air. Continuous monitoring pulse ox GI - Heart healthy, carb consistent diet RENAL/LYTES - Acute renal failurepatient with elevated creatinine of 2.11, with previous baseline around 1.2. Recent BMP appears the patient is starting to become acutely hyponatremic with sodium 127 -Multifactoral?Possible cardiorenal syndrome vs contrast nephropathy vs ATN with diuresis -She appears to have remained hemodynamically stable with no episodes of hypotension previously recorded on chart -Continue with gentle fluid resuscitation, NSS at 80 mL/h -Consult to nephrology -Will hold on further diuresis for now -Avoid nephrotoxins and renally adjust medications -Follow-up morning BMP - Strict I's and O's ENDO - DM type IIcontinue sliding scale/basal bolus. ICU hyperglycemic protocol HEME - H&H stable, monitor routine CBC ID - No indication for infectious process at this time LINES/IV ACCESS - Peripheral IVs DVT PROPHYLAXIS - SCDs, Thank you for allowing us to participate in the care of this patient. Please refer to my attending physician's documentation for any further recommendations. (2) DM type 2 (diabetes mellitus, type 2): (3) Hypertension: (4) Lumbosacral radiculopathy: (5) Hyperlipemia: (6) GERD (gastroesophageal reflux disease): (7) Acute renal failure: Admission and Anticipated Discharge Date Admission Date: March 15, 2024 Subjective 73-year-old female admitted to the hospital on 03/15 following heart alert through the emergency department which the patient was found to have nonischemic cardiomyopathy (Takotsubo's cardiomyopathy) and KATE, and has been downgraded to PCU status. Was asked to see patient again this evening as she was having new onset of chest pain, with EKG showing ST elevations in the precordial leads. Repeat troponin continues to downtrend. Patient made ICU status. Did speak with logistics operations director Dr. Niño, who also reviewed the EKG. Per conversation, unlikely this would be ischemic event, and likely a residual from initial injury. Also, pericarditis could be differential and was started on colchicine. Will add as needed morphine as needed. No indication for an systemic anticoagulation at this time. On evaluation, patient is calm and cooperative without acute distress. Hemodynamically stable and maintaining oxygen saturation on room air without l abored breathing. She reports chest pressure, worsened with deep breathing. She does report having acid reflux in the past, but states "this feels different". Plan to continue monitoring in ICU overnight, and if patient remains stable can likely downgrade in the morning. Review of Systems Review of Systems: All systems reviewed & are unremarkable except as noted in HPI & below Physical Exam Constitutional: cooperative and comfortable Eyes: PERRL, conjunctivae normal, anicteric sclerae ENMT: external ear and nose normal, oropharynx normal Neck: trachea midline, no thyromegaly Respiratory: normal respiratory effort, lungs clear to auscultation Cardiovascular: RRR, no murmur, no edema Heart Sounds: normal S1 and normal S2; no murmur Extremities: no edema Gastrointestinal (Abdomen): normal bowel sounds, soft, nontender, no hepatosplenomegaly Musculoskeletal: no cyanosis or clubbing, extremities motor strength 5/5 Skin: no rashes, warm and dry Neurologic: PERRL, EOMI, accommodation nl, no face palsy, no dysarthria Psychiatric: A+Ox3, euthymic affect Results & Data Results & Data Vital Signs (Past 12 Hours) Vital Signs Temp Pulse Resp BP Pulse Ox O2 Del Method 03/17/24 19:26 88 98/59 L 03/17/24 19:04 105 H 129/61 03/17/24 16:49 36.6 C 04/23/24 16:04 106 H 14 111/66 99 Room Air 03/17/24 15:19 106 H 19 106/56 L 97 Room Air 03/17/24 12:36 111 H 21 119/64 97 Room Air 03/17/24 12:30 36.5 C 03/17/24 12:29 105 H 20 99/55 L 98 Room Air 03/17/24 12:28 103 H 27 H 85/49 L 98 Room Air 03/17/24 12:27 102 H 21 107/73 96 Room Air 03/17/24 12:00 97 H 14 84/60 L 96 Room Air 03/17/24 11:00 107 H 19 91/51 L 96 Room Air 03/17/24 10:00 106 H 18 102/58 L 95 Room Air 03/17/24 09:00 108 H 14 115/61 96 Room Air PG Care Time/CCT Total # of Minutes Spent Total Time Spent with Patient: Total time spent is greater than 50% in coordination of care (as documented) at patient's floor/unit and/or counseling patient: Coding Level of Care Code 70164 SUB INP/OBS CARE MIN Diagnoses Takotsubo cardiomyopathy I51.81 DM type 2 (diabetes mellitus, type 2) E11.69 Diabetes mellitus complication status: with other specified complication Diabetes mellitus chief airport guide insulin use: without assisted use Hypertension I10 Hypertension type: unspecified Lumbosacral radiculopathy M54.17 Hyperlipemia E78.5 GERD (gastroesophageal reflux disease) K21.9 Acute renal failure N17.9 Time Spent (min) 41 (2) DM type 2 (diabetes mellitus, type 2) Diabetes mellitus complication status: with other specified complication Diabetes mellitus assisted insulin use: without chief airport guide use Qualified Code(s): E11.69 - Type 2 diabetes mellitus with other specified complication (3) Hypertension Hypertension type: unspecified Qualified Code(s): I10 - Essential (primary) hypertension
[2024-03-17] MEDS: COLCHICINE 0.6 MG TAB PO SCH (20:42)
[2024-03-17 21:31] LABS: Appearance Urine Clear (Clear); Bacteria Urine Automated None Seen (None Seen); Bilirubin Urine Negative (Negative); Blood Urine Negative (Negative); Color Urine Yellow; Epithelial Cell Urine Auto 0-2 /hpf (0-2); Glucose Urine UA 3+ (Negative); Ketones Urine Trace (Negative); Leukocyte Esterase Urine 2+ (Negative); Nitrite Urine Negative (Negative); Protein Urine Negative (Negative); RBC Urine Automated 0-2 /hpf (0-2); Specific Gravity Urine 1.021 (1.000-1.030); Urobilinogen Urine Negative (Negative); WBC Urine Automated 21-50 /hpf (0-5)
--- NOTE | 2024-03-17 23:06 | Hospitalist Progress Note ---
Date of Service March 17, 2024 Assessment & Plan (1) Takotsubo cardiomyopathy: Plan: Presented with ST elevations on EKG with chest pain Normal coronary arteries on cardiac cath - diagnosed with Takutsubo's cardiomyopathy (went to her brother [facility] yesterday) Switch metoprolol for carvedilol Switch olmesartan for Entresto BUmex on hold for now. Vitals signs have stablized. will transfer out of the ICU. will monitor renal function. In the evening near 7pm, patient had chest pain which was pressure like in nature. EKG showed more ST elevation in lateral leads. Discussion with cardiology supervisor stone, ordered colchicine. Continue above treatment, no need for anticoagulation or IV metoprolol. UPgraded to ICU for close monitoring. (2) DM type 2 (diabetes mellitus, type 2): Plan: Hemoglobin A1C 6.0 in Aug 2023, repeat with AM labs Stop metformin Jardiance added by cardiology Consult pharmacy for glycemic control (3) Hypertension: Plan: Monitor BP with multiple anti-hypertensives switched as above (4) Lumbar pain with radiation down both legs: Plan: Continue gabapentin 200mg HS (5) Hyperlipemia: Plan: Switch from simvastatin to atorvastatin per cardiology recommendations due to interactions (6) GERD (gastroesophageal reflux disease): Plan: Switch from omeprazole to pantoprazole per hospital formulary Currently will give IV due to nausea (7) Irritable bowel syndrome with diarrhea: Plan: Continue dicyclomine Plan VTE Prophylaxis - defer to ICU Diet - T2DM, heart healthy Admission and Anticipated Discharge Date Admission Date: March 15, 2024 Subjective Patient reports feeling well today on earlier visit. Patient later in the afternoon near shift change had another episde of chest pain. It was pressure like in nature. Review of Systems Review of Systems: All systems reviewed & are unremarkable except as noted in HPI & below Physical Exam Constitutional: WD/WN, vitals as above Eyes: PERRL, conjunctivae normal, anicteric sclerae ENMT: external ear and nose normal, oropharynx normal Neck: trachea midline, no thyromegaly Respiratory: normal respiratory effort, lungs clear to auscultation Cardiovascular: RRR, no murmur, no edema Gastrointestinal (Abdomen): normal bowel sounds, soft, nontender, no hepatosplenomegaly Neurologic: moves all extremities and awake; not confused Psychiatric: A+Ox3, euthymic affect Results & Data Results & Data Vital Signs (Past 12 Hours) Vital Signs Temp Pulse Resp BP Pulse Ox O2 Del Method 03/17/24 22:00 110/68 03/17/24 22:00 93 H 13 98 03/17/24 21:00 98/81 L 03/17/24 21:00 92 H 18 89 L 03/17/24 20:00 21 03/17/24 19:26 88 98/59 L 03/17/24 19:04 105 H 129/61 03/17/24 16:49 36.6 C 03/17/24 16:04 106 H 14 111/66 99 Room Air 03/17/24 15:19 106 H 19 106/56 L 97 Room Air 03/17/24 12:36 111 H 21 119/64 97 Room Air 03/17/24 12:30 36.5 C 03/17/24 12:29 105 H 20 99/55 L 98 Room Air 03/17/24 12:28 103 H 27 H 85/49 L 98 Room Air 03/17/24 12:27 102 H 21 107/73 96 Room Air 03/17/24 12:00 97 H 14 84/60 L 96 Room Air PG Care Time/CCT Total # of Minutes Spent Total Time Spent with Patient: Total time spent is greater than 50% in coordination of care (as documented) at patient's floor/unit and/or counseling patient: Coding Level of Care Code 29859 SUB INP/OBS CARE 3/50MIN Diagnoses Takotsubo cardiomyopathy I51.81 DM type 2 (diabetes mellitus, type 2) E11.69 Diabetes mellitus complication status: with other specified complication Diabetes mellitus supervisor intermediates insulin use: without long-term use Hypertension I10 Hypertension type: unspecified Lumbar pain with radiation down both legs M54.50; M79.604; M79.605 Hyperlipemia E78.5 GERD (gastroesophageal reflux disease) K21.9 Irritable bowel syndrome with diarrhea K58.0 Time Spent (min) 50 (2) DM type 2 (diabetes mellitus, type 2) Diabetes mellitus complication status: with other specified complication Diabetes mellitus supervisor intermediates insulin use: without supervisor intermediates use Qualified Code(s): E11.69 - Type 2 diabetes mellitus with other specified complication (3) Hypertension Hypertension type: unspecified Qualified Code(s): I10 - Essential (primary) hypertension
[2024-03-18] MEDS: SODIUM CHLORIDE 0.9% 1,000 ML IV SCH (04:00)
[2024-03-18 04:48] LABS: Basophils # (auto) 0.07 K/uL (0.00-0.20); Basophils % (auto) 0.7 %; Eosinophils # (auto) 0.24 K/uL (0.00-0.50); Eosinophils % (auto) 2.4 %; Hematocrit (blood only) 31.5 % (37.0-47.0); Hemoglobin 10.8 g/dl (12.0-16.0); Immature Granulocytes # (auto) 0.04 K/uL (0.01-0.20); Immature Granulocytes % (auto) 0.4 %; Lymphocytes # (auto) 2.23 K/uL (1.20-3.40); Lymphocytes % (auto) 22.7 %; Mean Corpuscular Hemoglobin 30.3 pg (25.0-34.0); Mean Corpuscular Hgb Conc 34.3 g/dL (32.0-36.0); Mean Corpuscular Volume 88.2 fL (80.0-100.0); Mean Platelet Volume 9.6 fL (9.4-12.4); Monocytes # (auto) 1.08 K/uL (0.11-0.59); Neutrophils # (auto) 6.18 K/uL (1.40-6.50); Neutrophils % (auto) 62.8 %; Platelet Count 183 K/uL (130-400); RDW Coefficient of Variation 14.2 % (11.5-14.5); RDW Standard Deviation 45.7 fL (36.4-46.3); Red Blood Count 3.57 M/uL (4.20-5.40); White Blood Count 9.84 K/ul (4.8-10.8)
[2024-03-18 05:08] LABS: BUN Creatinine Ratio 24.4 (10-20); Calcium 8.4 mg/dl (8.6-10.3); Creatinine Clr Calc Pharmacy 28.7 ml/min; Est GFR (African American) 36.2 ml/min; Est GFR (Non-African American) 31.2 ml/min; Magnesium 1.9 mg/dl (1.7-2.4); Potassium 4.6 mmol/L (3.5-5.1)
[2024-03-18] MEDS: MAGNESIUM SULFATE / D5W 1 GM/100 ML BAG IV ONE (06:17)
--- NOTE | 2024-03-18 08:28 | Critical Care Progress Note ---
Date of Service March 18, 2024 Assessment & Plan (1) Takotsubo cardiomyopathy: (2) DM type 2 (diabetes mellitus, type 2): (3) Hypertension: (4) Lumbosacral radiculopathy: (5) Hyperlipemia: (6) GERD (gastroesophageal reflux disease): (7) Acute renal failure: Plan Impression: 73-year-old female represents to the ICU following STEMI with nonischemic cardiomyopathy and new development of acute renal failure, now with ongoing chest pain and increased ST elevation in EKG precordial leads. Neuro - [facility] ICU: Negative Cardiac - Takotsubo's cardiomyopathypatient with initial presentation of ST elevation CO, status post unremarkable cardiac catheterization. -TTE with EF 30 to 35%, and consistent with Takotsubo's cardiomyopathy. Patient recently lost a relative and thought to be stress induced/nonischemic -Patient with new development of chest pain this evening. Repeat EKG shows ST-T wave elevation in precordial leads -Reviewed by interventional cardiology. Ischemic event unlikely given recent cardiac cath. Cannot rule out pericarditis, and starting on colchicine -No clear indication for systemic anticoagulation at this time -Treat pain as needed -Appreciate cardiology recommendations HTNcontinue Coreg HLDcontinue statin Respiratory - No history of pulmonary disease. Currently maintaining her saturation on room air. Continuous monitoring pulse ox GI - Heart healthy, carb consistent diet RENAL/LYTES - Acute on chronic renal failure baseline around 1.2. -MultifactoralPossible cardiorenal syndrome vs contrast nephropathy vs ATN with diuresis -Avoid nephrotoxins and renally adjust medications - Strict I's and O's ENDO - DM type IIcontinue sliding scale/basal bolus. ICU hyperglycemic protocol HEME - H&H stable, monitor routine CBC ID - No indication for infectious process at this time --Prophylaxis VTE: IPC GI: Pantoprazole Lines: Peripheral Diet: Cardiac Plan: In/out: +189, urine output 1151 Continue with colchicine Creatinine is trending down and she is making urine. Continue gentle hydration. Discontinue bumetanide Magnesium being replaced Disposition as per cardiology Please note the above document was generated using voice recognition software. It may contain grammatical, syntax or spelling errors.Any formal questions or concerns about the content, text or information contained within the body of this dictation should be directly addressed to the provider for clarification. Admission and Anticipated Discharge Date Admission Date: March 15, 2024 Subjective Patient seen and examined at bedside. No acute distress. Later last evening patient was complaining of chest pain and she did have been ST elevation Today she says she is feeling better than yesterday still have some chest tightness. Denies any dizziness, no nausea vomiting Was able to tolerate the breakfast. She was little bit tachycardic when I saw her with heart rate in the 110s but she just came back from the commode. Review of Systems 2 Review of Systems: All systems reviewed & are unremarkable except as noted in Subjective Physical Exam 2 Physical Exam: Constitutional: No acute distress HEENT: EOMI, PERRLA Respiratory system: Decreased air entry bilaterally, no wheeze, no rhonchi, mild crackles bilateral lower lobes CVS: S1-S2 positive, no murmurs or gallops Abdomen: Soft, nontender, nondistended, positive bowel sounds x4 Extremities: +2 pulses bilaterally radialis/ dorsalis pedis, no cyanosis, no edema Neuro: Awake alert oriented x3 Psych: Normal mood and affect G/U: No Le Skin: no rashes, warm and dry Lymphatic: no cervical or axillary lymphadenopathy Results & Data Results & Data Vital Signs (Past 12 Hours) Vital Signs Temp Pulse Resp BP Pulse Ox 03/18/24 05:00 116/67 03/18/24 05:00 82 16 97 03/18/24 04:01 116/68 03/18/24 04:01 79 16 100 03/18/24 04:00 83 21 98 03/18/24 03:00 87/56 L 03/18/24 03:00 80 8 L 98 03/18/24 02:00 36.3 C L 82 11 L 100 03/18/24 01:00 80 18 03/18/24 01:00 84/63 L 03/18/24 00:00 85 16 97 03/18/24 00:00 90 03/17/24 23:00 87/61 L 03/17/24 23:00 91 H 15 03/17/24 22:00 110/68 03/17/24 22:00 93 H 13 98 03/17/24 21:00 98/81 L 03/17/24 21:00 92 H 18 89 L Laboratory Results 03/18/24 04:20 03/18/24 04:20 Coding Level of Care Code 92678 SUB INP/OBS CARE MIN Diagnoses Takotsubo cardiomyopathy I51.81 DM type 2 (diabetes mellitus, type 2) E11.69 Diabetes mellitus complication status: with other specified complication Diabetes mellitus bed bug exterminator insulin use: without custodial use Hypertension I10 Hypertension type: unspecified Lumbosacral radiculopathy M54.17 Hyperlipemia E78.5 GERD (gastroesophageal reflux disease) K21.9 Acute renal failure N17.9 (2) DM type 2 (diabetes mellitus, type 2) Diabetes mellitus complication status: with other specified complication D iabetes mellitus custodial insulin use: without bed bug exterminator use Qualified Code(s): E11.69 - Type 2 diabetes mellitus with other specified complication (3) Hypertension Hypertension type: unspecified Qualified Code(s): I10 - Essential (primary) hypertension
--- NOTE | 2024-03-18 10:05 | Nephrology Consultation ---
Date of Consultation March 18, 2024 Assessment & Plan (1) Acute renal failure: * KAET multifactorial - AMY in the setting of diuretic and ARB therapy * Agree w/ holding ARB and diuretic for now. IV hydration has been provided * Patient remains nonoliguric. Creatinine has improved from 2.17 to 1.6 last 24 hours. Urine sediment is negative for cellular casts. * Continue supportive care. If renal function fails to improve w/ conservative measures, will then consider renal US * Monitor PRP, UO (2) Chronic kidney disease with active medical management without dialysis, stage 3 (moderate): * CKD stage G3a/A1 (moderate impairment). Baseline Cr 1.0 w/ EGFR 50 cc/min. Urine microalbumin creatinine ratio < 18.2. Renal impairment is likely on the basis of microvascular disease (3) Takotsubo cardiomyopathy: * LVEF 20%. Now wearing defibrillator vest * Normal coronary arteries on 03/15/24 cardiac catheterization * Patient has relative hypotension w/ SBP 90. Hold Entresto, Bumex until both KATE resolves and SBP > 100 mm Hg * Patient remains on Jardiance (4) Type 2 diabetes mellitus with peripheral neuropathy: History of Present Illness Reason for Consultation: KATE/CKD Attending Physician: Gabriele Storey History of Present Illness Mrs. Barba is a 73 year old female who is seen at the request of [facility] ICU team for evaluation of KATE/CKD. Information for the HPI is obtained from direct patient interview and review of the EMR. HPI is summarized as follows: Mrs. Barba has a known h/o AODM, HTN and hyperlipidemia. Her baseline Cr has been 1.0 w/ EGFR 50 cc/min. Mrs. Barba's outpatient medical regimen has included Olmesartan, Bumex and daily Naproxen. Mrs. Elliott was brought to [facility] EMD 03/15/24 for evaluation of ACS/STEMI. Cardiac catheterization revealed normal coronary arteries . LVEF was only 20% and patient had evidence of moderate MR. Post procedure she was started on Carvedilol, Entresto, Jardiance and Bumex. A wearable defibrillator was also provided due to her low LVEF. Creatinine peaked a 2.17. Patient remains nonoliguric. ICU team has already held ARB, diuretic due to KATE Allergies Allergy/AdvReac Type Severity Reaction Status Date / Time inositol niacinate AdvReac Mild turned red Verified 01/21/24 10:08 [From Niacin No Flush] niacin [From Niacin No Flush] AdvReac Mild turned red Verified 01/21/24 10:08 Home Medications Medication Instructions Recorded Confirmed Type [id number]-lgphm acid 0.4 1 tab PO DAILY 12/09/20 03/15/24 History mg-lycopene 300 mcg-lutein 250 mcg tablet (Centrum Silver) omega-3 fatty acids [Fish Oil] 1 PO 12/09/20 01/21/24 History one touch ultra mini #1 ea 09/25/22 01/21/24 Rx blood sugar diagnostic (OneTouch #100 ea 01/11/23 01/21/24 Rx Ultra Test strips) lancets 33 gauge (OneTouch Delica #100 ea 01/11/23 01/21/24 Rx Lancets) estradiol 0.01% (0.1 mg/gram) 1 g vaginal .COMPLEX #42.5 grams 02/06/23 03/15/24 Rx vaginal cream (Estrace) lactobacillus combination no.9 4 4,000 mmu cells PO DAILY 06/03/23 03/15/24 History billion cell capsule (Adult 50 Plus Probiotic) metformin 500 mg tablet,extended 500 mg PO DAILY #90 tabs 09/13/23 03/15/24 Rx release 24 hr metoprolol tartrate 25 mg tablet 25 mg PO BID #180 tabs 10/24/23 03/15/24 Rx bumetanide 1 mg tablet 0.5 mg (1/2 x 1 mg) PO DAILY #45 11/27/23 03/15/24 Rx tabs dexamethasone [Dexamethasone PO 01/20/24 01/21/24 History Intensol] naproxen 375 mg tablet 375 mg PO DAILY #90 tabs 02/13/24 03/15/24 Rx omeprazole 20 mg capsule,delayed 20 mg PO DAILY #90 caps 02/13/24 03/15/24 Rx release olmesartan 40 mg tablet 40 mg PO DAILY #90 tabs 02/14/24 03/15/24 Rx dicyclomine 10 mg capsule 10 mg PO BID 03/15/24 03/15/24 History gabapentin 100 mg capsule 200 mg PO HS neuropathy 03/15/24 03/15/24 History simvastatin 20 mg tablet 20 mg PO HS 03/15/24 03/15/24 History Patient History Medical History Lumbosacral radiculopathy Lumbosacral spondylosis Lumbar pain with radiation down both legs Osteopenia Irritable bowel syndrome with diarrhea GERD (gastroesophageal reflux disease) Type 2 diabetes mellitus with peripheral neuropathy Mixed hyperlipidemia Primary hypertension Surgical History Hx of colonoscopy 2020 History of surgery on lower extremity 2002 Family History Aunt Breast cancer Grandmother (Maternal) Breast cancer Diabetes Father Myocardial infarction Grandfather Cancer Mother Heart disease Hypertension Father Heart disease Brother Cancer leukemia, gallbladder and liver Denies family history of Ovarian cancer Prostate cancer Colorectal cancer Social History Smoking Status: Never smoker Second Hand Exposure: No; Do You Dip or Chew Tobacco: No; Hx Alcohol Use: No Hx Substance Use: No Preferred Language: Barbadian Communication Ability: Effective Visual Impairment: No Limitations Hearing Ability: Normal Faa Certified Powerplant Mechanic Required: No Beliefs That Will Affect Care: None marital status: Current Living Situation: Spouse current occupational status: retired Feels Safe at Home: Yes Childhood Exposure to Second-Hand Smoke: Yes Dental Care, Regularly: Yes Seatbelt Use: always Assistive Devices: None Review of Systems Constitutional: no fever Eyes: no problem reported Ear, Nose, Mouth, Throat: no problem reported Respiratory: no cough and no dyspnea Cardiovascular: no chest pain Gastrointestinal: no abdominal pain, no nausea, no vomiting and no diarrhea/loose stools Genitourinary: no dysuria and no hematuria Integumentary: no rash Physical Exam Constitutional: not in distress wearing defibrillator vest Eyes: PERRL, conjunctivae normal, anicteric sclerae ENMT: external ear and nose normal, oropharynx normal Neck: trachea midline, no thyromegaly Respiratory: normal respiratory effort, lungs clear to auscultation Cardiovascular: Rate/Rhythm: regular rate and regular rhythm Extremities: no edema Gastrointestinal (Abdomen): normal bowel sounds, soft, nontender, no hepatosplenomegaly Skin: no digital ischemia of the feet Neurologic: Speech / Cognition: normal speech and normal cognition Results & Data Vital Signs (Past 12 Hours) Vital Signs Temp Pulse Resp BP Pulse Ox O2 Del Method 03/18/24 09:00 93/77 L 03/18/24 09:00 104 H 18 96 03/18/24 08:01 95 H 16 98 03/18/24 08:01 126/81 03/18/24 08:00 94 H 16 97 Room Air 03/18/24 07:00 97/66 L 03/18/24 07:00 80 12 99 03/18/24 05:00 116/67 03/18/24 05:00 82 16 97 03/18/24 04:01 116/68 03/18/24 04:01 79 16 100 03/18/24 04:00 83 21 98 03/18/24 03:00 87/56 L 03/18/24 03:00 80 8 L 98 03/18/24 02:00 36.3 C L 82 11 L 100 03/18/24 01:00 80 18 03/18/24 01:00 84/63 L 03/18/24 00:00 85 16 97 03/18/24 00:00 90 03/17/24 23:00 87/61 L 03/17/24 23:00 91 H 15 Laboratory Results Laboratory Results WBC 9.84 K/ul (4.8-10.8) 03/18/24 04:20 RBC 3.57 M/uL (4.20-5.40) L 03/18/24 04:20 Hgb 10.8 g/dl (12.0-16.0) L 03/18/24 04:20 Hct 31.5 % (37.0-47.0) L 03/18/24 04:20 MCV 88.2 fL (80.0-100.0) 03/18/24 04:20 MCH 30.3 pg (25.0-34.0) 03/18/24 04:20 MCHC 34.3 g/dL (32.0-36.0) 03/18/24 04:20 RDW Std Deviation 45.7 fL (36.4-46.3) 03/18/24 04:20 RDW Coeff of Rebekah 14.2 % (11.5-14.5) 03/18/24 04:20 Plt Count 183 K/uL (130-400) 03/18/24 04:20 MPV 9.6 fL (9.4-12.4) 03/18/24 04:20 Immature Gran % (Auto) 0.4 % 03/18/24 04:20 Neut % (Auto) 62.8 % 03/18/24 04:20 Lymph % (Auto) 22.7 % 03/18/24 04:20 Curry % (Auto) 11.0 % 03/18/24 04:20 Eos % (Auto) 2.4 % 03/18/24 04:20 Baso % (Auto) 0.7 % 03/18/24 04:20 Neut # (Auto) 6.18 K/uL (1.40-6.50) 03/18/24 04:20 Lymph # (Auto) 2.23 K/uL (1.20-3.40) 03/18/24 04:20 Curry # (Auto) 1.08 K/uL (0.11-0.59) H 03/18/24 04:20 Eos # (Auto) 0.24 K/uL (0.00-0.50) 03/18/24 04:20 Baso # (Auto) 0.07 K/uL (0.00-0.20) 03/18/24 04:20 Immature Gran # (Auto) 0.04 K/uL (0.01-0.20) 03/18/24 04:20 PT 11.0 Seconds (9.0-12.0) 03/17/24 19:08 INR 1.0 (0.9-1.1) 03/17/24 19:08 APTT 33 Seconds (21-31) H 03/17/24 19:08 PTT Ratio 1.2 03/17/24 19:08 Sodium 130 mmol/L (136-145) L 03/18/24 04:20 Potassium 4.6 mmol/L (3.5-5.1) 03/18/24 04:20 Chloride 101 mmol/L (98-107) 03/18/24 04:20 Carbon Dioxide 22 mmol/L (21-32) 03/18/24 04:20 Anion Gap 7 (3-11) 03/18/24 04:20 BUN 39 mg/dl (6-23) H 03/18/24 04:20 Creatinine 1.60 mg/dl (0.6-1.2) H D 03/18/24 04:20 Est Cr Clr Drug Dosing 28.7 ml/min 03/18/24 04:20 Est GFR ( Amer) 36.2 ml/min 03/18/24 04:20 Est GFR (Non-Af Amer) 31.2 ml/min 03/18/24 04:20 BUN/Creatinine Ratio 24.4 (10-20) H 03/18/24 04:20 Glucose 118 mg/dl (70-99(Fasting)) H 03/18/24 04:20 POC Glucose 129 mg/dl (70-99) H 03/17/24 20:41 Estimat Average Glucose 126 mg/dl 03/16/24 04:12 Hemoglobin A1c 6.0 % (4.5-5.6) H 03/16/24 04:12 Osmolality 281 mOsm/kg (280-300) 03/18/24 04:20 Calcium 8.4 mg/dl (8.6-10.3) L 03/18/24 04:20 Phosphorus 4.7 mg/dl (2.5-4.9) 03/17/24 19:37 Magnesium 1.9 mg/dl (1.7-2.4) 03/18/24 04:20 Total Bilirubin 0.5 mg/dl (0.2-1.0) 03/17/24 19:37 AST 20 U/L (13-39) 03/17/24 19:37 ALT 11 U/L (7-52) 03/17/24 19:37 Alkaline Phosphatase 54 U/L (34-104) 03/17/24 19:37 Troponin I High Sens 1662.3 pg/ml (0-14) H* D 03/17/24 19:37 Total Protein 5.7 gm/dl (6.0-8.3) L 03/17/24 19:37 Albumin 3.3 gm/dl (3.4-5.0) L 03/17/24 19:37 Globulin 2.4 gm/dl (2.5-4.0) L 03/17/24 19:37 Albumin/Globulin Ratio 1.4 (0.9-2) 03/17/24 19:37 Lipase 38 U/L (11-82) 03/15/24 09:19 Urine Color Yellow 03/17/24 20:59 Urine Appearance Clear (Clear) 03/17/24 20:59 Urine pH 5.0 (4.5-7.5) 03/17/24 20:59 Ur Specific [place] 1.021 (1.000-1.030) 03/17/24 20:59 Urine Protein Negative (Negative) 03/17/24 20:59 Urine Glucose (UA) 3+ (Negative) H 03/17/24 20:59 Urine Ketones Trace (Negative) H 03/17/24 20:59 Urine Blood Negative (Negative) 03/17/24 20:59 Urine Nitrite Negative (Negative) 03/17/24 20:59 Urine Bilirubin Negative (Negative) 03/17/24 20:59 Urine Urobilinogen Negative (Negative) 03/17/24 20:59 Ur Leukocyte Esterase 2+ (Negative) H 03/17/24 20:59 Urine WBC (Auto) 21-50 /hpf (0-5) H 03/17/24 20:59 Urine RBC (Auto) 0-2 /hpf (0-2) 03/17/24 20:59 U Hyaline Cast (Auto) 11-20 /lpf (0-2) H 03/17/24 20:59 U Epithel Cells (Auto) 0-2 /hpf (0-2) 03/17/24 20:59 Urine Bacteria (Auto) None Seen (None Seen) 03/17/24 20:59 Nasal Screen MRSA (PCR) Negative (Negative) 03/15/24 Unknown Impressions Chest X-Ray 03/15/24 09:16 XR chest 1V portable CLINICAL HISTORY: Chest pain, nonspecific COMPARISON STUDY: No previous studies for comparison. FINDINGS: Lung volumes are normal. Lungs are clear. There is no pneumothorax or pleural effusion. Cardiac size is normal. A small hiatal hernia is present. There is no evidence for pulmonary edema. IMPRESSION: No acute cardiopulmonary findings. ACT 112: Negative or not required by law. Electronically signed by: Alexei Babb M.D. 03/15/2024 9:32 AM PG Care Time/CCT Total # of Minutes Spent Total Time Spent with Patient: Total time spent is greater than 50% in coordination of care (as documented) at patient's floor/unit and/or counseling patient: Coding Level of Care Code 83792 IN/OBS CONSULT LVL 5,80M Diagnoses Acute renal failure N17.9 Chronic kidney disease with active medical management without dialysis, stage 3 (moderate) N18.30 Takotsubo cardiomyopathy I51.81 Type 2 diabetes mellitus with peripheral neuropathy E11.42
--- NOTE | 2024-03-18 10:49 | Pharmacy Report ---
Pharmacy Glycemic Short Note 2 - Date of Service March 18, 2024 - Glycemic Short BSG Results (Last 24 hours): 03/17/24 03/17/24 03/17/24 11:11 16:29 19:37 Glucose 172 H POC Glucose 166 H 123 H 03/17/24 03/18/24 20:41 04:20 Glucose 118 H POC Glucose 129 H OUTPATIENT ANTIDIABETIC REGIMEN: * Metformin 500 mg PO Daily * HbA1c: 6% (03/16/24) ASSESSMENT: 03/18: * Received 23 units of insulin yesterday, all bolus. BSGs were: [phone] mg/dL. * Fasting BSG was 118 mg/dL this AM. * No change to insulin regimen necessary today. Continues on Jardiance. No other stressors. 03/17: * Henna received 27 units of insulin yesterday, 10 basal + 17 bolus. BSGs were: [phone] mg/dL. * Fasting BSG elevated at 195 mg/dL this AM. Unsure of cause, maybe overnight snacking? * No adjustment to basal today. Continue with scaled HS dose for BSG > 180 mg/dL. May need to increase basal tomorrow if fasting continues to trend up. SCr continues to trend up, almost doubled from day of admission so may start to retain long acting insulin. * Tightened CF and CR today given trend upward in postprandials yesterday. Patient remains on Jardiance 10 mg PO daily. * Ordered and tolerating a T2DM/heart healthy diet. 03/15: * 73 yo F admitted with chest pain, PMH DM2, updated A1c pending, managed on only metformin at home, cariology starting optimized heart failure regimen for severe LV systolic dysfunction including Jardiance 10mg, may increase to 25mg per hospitalist. * Will begin with NovoLog only and add basal insulin if this is insufficient to maintain goal blood sugar. PLAN FOR INPATIENT GLYCEMIC CONTROL: * Hold outpatient Metformin * Jardiance 10mg PO daily * Basal insulin * Lantus 10 units SQ HS for BSG > 180mg/dl * Bolus insulin * NovoLog per scale ACHS or Q6hrs while NPO * Goal Range: Low 110 mg/dL - High 140 mg/dL * Correction Factor: 25 mg/dL/unit * Nutritional / Prandial insulin per carb ratio of 1 unit per 8 grams CHO consumed
[2024-03-18] MEDS: ONDANSETRON INJ 2 MG/ML 2 ML VIAL IV PRN (11:41)
--- NOTE | 2024-03-18 16:00 | Cardiology Progress Note ---
Date of Service March 18, 2024 Assessment & Plan (1) Takotsubo cardiomyopathy: Plan: LVEF 30% 2. Acute on chronic renal insufficiency 3. Hyponatremia 4. Type [address] elevations on ECG 6. Anemia 7. Dyslipidemia 8. GERD Patient chest pain-free today. Suspect residual discomfort yesterday evening related to stress-induced cardiomyopathy, possible postcardiac injury pericarditis. Chest pain/ST elevations does not represent new ACS. No signs of heart failure on exam today. Kidney function improving. Agree with holding Entresto, diuretics Continue current carvedilol, empagliflozin Would stop maintenance IV fluids Wearable defibrillator in place Agree with colchicine 0.6 mg twice daily. Pain control/supportive care for any residual chest pain From a cardiac standpoint if stable overnight okay with discharge tomorrow. Admission and Anticipated Discharge Date Admission Date: March 15, 2024 Subjective Feeling well this afternoon. Chest discomfort from last night has largely resolved. Denies any pain currently. Did not require any morphine. No other new concerns. Feels she is ready to go home. Review of Systems Review of Systems: All systems reviewed & are unremarkable except as noted in HPI & below Physical Exam Physical Exam: General: Comfortable HEENT: Sclerae anicteric Lungs: Clear to auscultation bilaterally, Cardiac: Regular rate and rhythm, 2 out of 6 systolic ejection murmur. No rubs Vascular: 2+ radial Abdomen: Soft, nontender Extremities: Well perfused, no peripheral edema Neuro: Nonfocal Psych: Alert orient x3, normal affect and mood Results & Data Vital Signs (Past 12 Hours) Vital Signs Temp Pulse Resp BP Pulse Ox O2 Del Method 03/18/24 15:19 87 03/18/24 15:00 97.7 F 113/59 L 03/18/24 15:00 76 13 98 Room Air 03/18/24 14:00 81 17 98 03/18/24 14:00 107/61 03/18/24 13:00 82 15 97 03/18/24 13:00 109/65 03/18/24 12:00 116/67 03/18/24 12:00 83 17 97 03/18/24 11:00 87 14 96 03/18/24 11:00 114/73 03/18/24 10:00 95 H 17 96 03/18/24 10:00 121/77 03/18/24 09:00 93/77 L 03/18/24 09:00 104 H 18 96 03/18/24 08:01 95 H 16 98 03/18/24 08:01 126/81 03/18/24 08:00 94 H 16 97 Room Air 03/18/24 07:00 97/66 L 03/18/24 07:00 80 12 99 03/18/24 05:00 116/67 03/18/24 05:00 82 16 97 03/18/24 04:01 116/68 03/18/24 04:01 79 16 100 03/18/24 04:00 83 21 98 PG Care Time/CCT Total # of Minutes Spent Total Time Spent with Patient: Total time spent is greater than 50% in coordination of care (as documented) at patient's floor/unit and/or counseling patient: Coding Level of Care Code 61017 SUB INP/OBS CARE 3/50MIN Diagnoses Takotsubo cardiomyopathy I51.81
--- NOTE | 2024-03-18 16:14 | Electrocardiogram Report ---
Test Reason : Blood Pressure : / mmHG Vent. Rate : 104 BPM Atrial Rate : 104 BPM P-R Int : 190 ms QRS Dur : 104 ms QT Int : 360 ms P-R-T Axes : 062 -66 060 degrees QTc Int : 473 ms Sinus tachycardia with Premature atrial complexes Left axis deviation Inferior infarct (cited on or before 15-MAR-2024) Anterolateral infarct (cited on or before 15-MAR-2024) ACUTE FL / STEMI Abnormal ECG When compared with ECG of 15-MAR-2024 10:25, Right bundle branch block is no longer Present Questionable change in initial forces of Anterolateral leads Questionable change in initial forces of Inferior leads Confirmed by Francisco Rodríguez ([id number]) on 03/18/2024 4:14:23 PM Referred By: Mandeep Pizano Confirmed By:Francisco Rodríguez
--- NOTE | 2024-03-18 21:54 | Hospitalist Progress Note ---
Date of Service March 18, 2024 Assessment & Plan (1) Takotsubo cardiomyopathy: Plan: Presented with ST elevations on EKG with chest pain Normal coronary arteries on cardiac cath - diagnosed with Takutsubo's cardiomyopathy (went to her brother wake yesterday) Switch metoprolol for carvedilol Switch olmesartan for Entresto BUmex on hold for now. Vitals signs have stablized. will transfer out of the ICU. will monitor renal function. In the evening of 03/17 near 7pm, patient had chest pain which was pressure like in nature. EKG showed more ST elevation in lateral leads. Discussion with cardiology trade union secretary, ordered colchicine. Continue above treatment, no need for anticoagulation or IV metoprolol. UPgraded to ICU for close monitoring. On 03/18 will downgrade Patient improved with colchicine BID Appreciate input from Dr. Niño. If continues to do well in AM of 03/19, patient will be discharged. (2) DM type 2 (diabetes mellitus, type 2): Plan: Hemoglobin A1C 6.0 in Aug 2023, repeat with AM labs Stop metformin Jardiance added by cardiology Consult pharmacy for glycemic control (3) Hypertension: Plan: Monitor BP with multiple anti-hypertensives switched as above (4) Lumbar pain with radiation down both legs: Plan: Continue gabapentin 200mg HS (5) Hyperlipemia: Plan: Switch from simvastatin to atorvastatin per cardiology recommendations due to interactions (6) GERD (gastroesophageal reflux disease): Plan: Switch from omeprazole to pantoprazole per hospital formulary Currently will give IV due to nausea (7) Irritable bowel syndrome with diarrhea: Plan: Continue dicyclomine Plan Acute Kidney failure From problem 1 creatinine is improving, will monitor. VTE Prophylaxis - defer to ICU Diet - T2DM, heart healthy Admission and Anticipated Discharge Date Admission Date: March 15, 2024 Subjective Patient reports no new symptoms. Her chest pain has improved with the colchicine. Review of Systems Review of Systems: All systems reviewed & are unremarkable except as noted in HPI & below Physical Exam Constitutional: WD/WN, vitals as above Eyes: PERRL, conjunctivae normal, anicteric sclerae ENMT: external ear and nose normal, oropharynx normal Neck: trachea midline, no thyromegaly Respiratory: normal respiratory effort, lungs clear to auscultation Cardiovascular: RRR, no murmur, no edema Gastrointestinal (Abdomen): normal bowel sounds, soft, nontender, no hepatosplenomegaly Neurologic: moves all extremities and awake; not confused Psychiatric: A+Ox3, euthymic affect Results & Data Results & Data Vital Signs (Past 12 Hours) Vital Signs Temp Pulse Resp BP Pulse Ox O2 Del Method 03/18/24 20:01 150/79 H 03/18/24 20:01 93 H 19 98 03/18/24 20:00 97 H 20 96 03/18/24 19:00 36.5 C 83 13 97 03/18/24 17:00 90 12 100 03/18/24 17:00 121/65 03/18/24 16:00 79 21 96 03/18/24 16:00 110/66 03/18/24 15:19 87 03/18/24 15:00 36.5 C 113/59 L 03/18/24 15:00 76 13 98 Room Air 03/18/24 14:00 81 17 98 03/18/24 14:00 107/61 03/18/24 13:00 82 15 97 03/18/24 13:00 109/65 03/18/24 12:00 116/67 03/18/24 12:00 83 17 97 03/18/24 11:00 87 14 96 03/18/24 11:00 114/73 03/18/24 10:00 95 H 17 96 03/18/24 10:00 121/77 PG Care Time/CCT Total # of Minutes Spent Total Time Spent with Patient: Total time spent is greater than 50% in coordination of care (as documented) at patient's floor/unit and/or counseling patient: Coding Level of Care Code 42409 SUB INP/OBS CARE 2/35MIN Diagnoses Takotsubo cardiomyopathy I51.81 DM type 2 (diabetes mellitus, type 2) E11.69 Diabetes mellitus complication status: with other specified complication Diabetes mellitus skilled nursing insulin use: without exterminator termite use Hypertension I10 Hypertension type: unspecified Lumbar pain with radiation down both legs M54.50; M79.604; M79.605 Hyperlipemia E78.5 GERD (gastroesophageal reflux disease) K21.9 Irritable bowel syndrome with diarrhea K58.0 (2) DM type 2 (diabetes mellitus, type 2) Diabetes mellitus complication status: with other specified complication Diabetes mellitus exterminator termite insulin use: without exterminator termite use Qualified Code(s): E11.69 - Type 2 diabetes mellitus with other specified complication (3) Hypertension Hypertension type: unspecified Qualified Code(s): I10 - Essential (primary) hypertension
[2024-03-19 04:23] LABS: Basophils # (auto) 0.04 K/uL (0.00-0.20); Basophils % (auto) 0.5 %; Eosinophils # (auto) 0.22 K/uL (0.00-0.50); Eosinophils % (auto) 2.7 %; Hematocrit (blood only) 30.3 % (37.0-47.0); Hemoglobin 10.6 g/dl (12.0-16.0); Immature Granulocytes # (auto) 0.06 K/uL (0.01-0.20); Immature Granulocytes % (auto) 0.7 %; Lymphocytes # (auto) 1.63 K/uL (1.20-3.40); Lymphocytes % (auto) 20.1 %; Mean Corpuscular Hemoglobin 31.2 pg (25.0-34.0); Mean Corpuscular Volume 89.1 fL (80.0-100.0); Mean Platelet Volume 9.8 fL (9.4-12.4); Monocytes # (auto) 1.03 K/uL (0.11-0.59); Monocytes % (auto) 12.7 %; Neutrophils # (auto) 5.11 K/uL (1.40-6.50); Neutrophils % (auto) 63.3 %; Platelet Count 182 K/uL (130-400); RDW Coefficient of Variation 14.4 % (11.5-14.5); RDW Standard Deviation 46.4 fL (36.4-46.3); White Blood Count 8.09 K/ul (4.8-10.8)
[2024-03-19 04:31] LABS: BUN Creatinine Ratio 23.7 (10-20); Calcium 8.1 mg/dl (8.6-10.3); Creatinine Clr Calc Pharmacy 37.9 ml/min; Est GFR (Non-African American) 39.7 ml/min; Potassium 4.5 mmol/L (3.5-5.1)
[2024-03-19] MEDS: PANTOprazole 40 MG TAB PO SCH (07:57)
--- NOTE | 2024-03-19 08:30 | Nephrology Progress Note ---
Date of Service March 19, 2024 Assessment & Plan (1) Acute renal failure: Plan: * KATE multifactorial - AMY in the setting of diuretic and ARB therapy * Agree w/ holding ARB and diuretic for now. IV hydration has been provided * Patient remains nonoliguric. Creatinine has improved from 2.17 to 1.3 last 48 hours. Urine sediment is negative for cellular casts. * Monitor PRP, UO * Will arrange outpatient PRP and follow up visit in approx 1 week (2) Chronic kidney disease with active medical management without dialysis, stage 3 (moderate): Plan: * CKD stage G3a/A1 (moderate impairment). Baseline Cr 1.0 w/ EGFR 50 cc/min. Urine microalbumin creatinine ratio < 18.2. Renal impairment is likely on the basis of microvascular disease (3) Takotsubo cardiomyopathy: Plan: * LVEF 20%. Now wearing defibrillator vest * Normal coronary arteries on 03/15/24 cardiac catheterization * Continue to hold Entresto, Bumex until both KATE resolves and SBP > 100 mm Hg. Cardiology will likely resume as outpatient * Patient remains on Jardiance (4) Type 2 diabetes mellitus with peripheral neuropathy: Admission and Anticipated Discharge Date Admission Date: March 15, 2024 Subjective Mrs. Barba was evaluated in the ICU this morning. She denied angina. She continues to wear a defibrillator vest. Mrs. Barba reports brisk UO. She hopes to return home soon Review of Systems Constitutional: no fever Eyes: no problem reported Ear, Nose, Mouth, Throat: no problem reported Respiratory: no cough and no dyspnea Cardiovascular: no chest pain Gastrointestinal: no abdominal pain, no nausea, no vomiting and no diarrhea/loose stools Genitourinary: no dysuria and no hematuria Integumentary: no rash Physical Exam Constitutional: not in distress Eyes: PERRL, conjunctivae normal, anicteric sclerae ENMT: external ear and nose normal, oropharynx normal Neck: trachea midline, no thyromegaly Respiratory: normal respiratory effort, lungs clear to auscultation Cardiovascular: Rate/Rhythm: regular rate and regular rhythm Extremities: no edema Gastrointestinal (Abdomen): normal bowel sounds, soft, nontender, no hepatosplenomegaly Neurologic: Speech / Cognition: normal speech and normal cognition Results & Data Vital Signs (Past 12 Hours) Vital Signs Temp Pulse Resp BP Pulse Ox 03/19/24 07:25 98 H 19 95 03/19/24 07:25 129/69 03/19/24 07:00 96 H 15 96 03/19/24 03:00 36.4 C L 81 13 97 03/19/24 03:00 127/65 03/19/24 02:05 79 15 96 03/19/24 01:00 108/54 L 03/19/24 01:00 79 7 L 93 03/19/24 00:00 85 16 95 03/19/24 00:00 86/59 L 03/19/24 00:00 86 03/18/24 23:00 117/63 03/18/24 23:00 87 17 94 03/18/24 22:00 106/58 L 03/18/24 22:00 84 14 95 03/18/24 21:00 126/59 L 03/18/24 21:00 85 17 96 Laboratory Results Laboratory Results - last 24 hr 03/18/24 03/18/24 03/18/24 11:30 15:13 20:06 WBC RBC Hgb Hct MCV MCH MCHC RDW Std Deviation RDW Coeff of Rebekah Plt Count MPV Immature Gran % (Auto) Neut % (Auto) Lymph % (Auto) [place] % (Auto) Eos % (Auto) Baso % (Auto) Neut # (Auto) Lymph # (Auto) [place] # (Auto) Eos # (Auto) Baso # (Auto) Immature Gran # (Auto) Sodium Potassium Chloride Carbon Dioxide Anion Gap BUN Creatinine Est Cr Clr Drug Dosing Est GFR ( Amer) Est GFR (Non-Af Amer) BUN/Creatinine Ratio Glucose POC Glucose 163 H 122 H 154 H Calcium Magnesium 03/19/24 03/19/24 03:38 07:22 WBC 8.09 RBC 3.40 L Hgb 10.6 L Hct 30.3 L MCV 89.1 MCH 31.2 MCHC 35.0 RDW Std Deviation 46.4 H RDW Coeff of Rebekah 14.4 Plt Count 182 MPV 9.8 Immature Gran % (Auto) 0.7 Neut % (Auto) 63.3 Lymph % (Auto) 20.1 [place] % (Auto) 12.7 Eos % (Auto) 2.7 Baso % (Auto) 0.5 Neut # (Auto) 5.11 Lymph # (Auto) 1.63 [place] # (Auto) 1.03 H Eos # (Auto) 0.22 Baso # (Auto) 0.04 Immature Gran # (Auto) 0.06 Sodium 130 L Potassium 4.5 Chloride 100 Carbon Dioxide 24 Anion Gap 6 BUN 31 H Creatinine 1.31 H Est Cr Clr Drug Dosing 37.9 Est GFR ( Amer) 46.0 Est GFR (Non-Af Amer) 39.7 BUN/Creatinine Ratio 23.7 H Glucose 130 H POC Glucose 160 H Calcium 8.1 L Magnesium 2.0 PG Care Time/CCT Total # of Minutes Spent Total Time Spent with Patient: Total time spent is greater than 50% in coordination of care (as documented) at patient's floor/unit and/or counseling patient: Coding Level of Care Code 47460 SUB INP/OBS CARE 3/50MIN Diagnoses Acute renal failure N17.9 Chronic kidney disease with active medical management without dialysis, stage 3 (moderate) N18.30 Takotsubo cardiomyopathy I51.81 Type 2 diabetes mellitus with peripheral neuropathy E11.42
--- NOTE | 2024-03-19 12:35 | Discharge Summary ---
Discharge Summary Date of Service March 19, 2024 Admission HPI Per Admitting Provider Henna Barba is a 73 year old female who presents to the ER with chest pain. She reports sudden onset chest pain at 8am this morning. Occurred after getting up this morning. No radiation. Central crushing pain. Patient was a heart alert due to ST elevations anterolaterally and was taken emergently to the cardiac mobile lab technician demonstrating normal coronary arteries. Left ventriculogram was consistent with Takotsubo cardiomyopathy. She notes she was [facility] her [facility] yesterday. Patient was seen in the ICU post cardiac cath and no longer have chest pain at this time but if feeling a little nauseous. She did not take any of her medications this morning. No prior history of myocardial infarction or cardiac problems. She has diabetes and HTN. Principal Dx & Hospital Course #1 = Principal Diagnosis (1) Takotsubo cardiomyopathy: Presented with ST elevations on EKG with chest pain Normal coronary arteries on cardiac cath - diagnosed with Takutsubo's cardiomyopathy (went to her brother [facility] yesterday) Switch metoprolol for carvedilol Switch olmesartan for Entresto BUmex on hold for now. Vitals signs have stablized. will transfer out of the ICU. will monitor renal function. In the evening of 03/17 near 7pm, patient had chest pain which was pressure like in nature. EKG showed more ST elevation in lateral leads. Discussion with cardiology moving consultant, ordered colchicine. Continue above treatment, no need for anticoagulation or IV metoprolol. UPgraded to ICU for close monitoring. On 03/18 will downgrade Patient improved with colchicine BID Appreciate input from Dr. Niño. If continues to do well in AM of 03/19, patient will be discharged. (2) DM type 2 (diabetes mellitus, type 2): Hemoglobin A1C 6.0 in Aug 2023, repeat with AM labs Stop metformin Jardiance added by cardiology Consult pharmacy for glycemic control (3) Hypertension: Monitor BP with multiple anti-hypertensives switched as above (4) Lumbar pain with radiation down both legs: Continue gabapentin 200mg HS (5) Hyperlipemia: Switch from simvastatin to atorvastatin per cardiology recommendations due to interactions (6) GERD (gastroesophageal reflux disease): Switch from omeprazole to pantoprazole per hospital formulary Currently will give IV due to nausea (7) Irritable bowel syndrome with diarrhea: Continue dicyclomine Plan Acute Kidney failure From problem 1 creatinine is improving, will monitor. VTE Prophylaxis - defer to ICU Diet - T2DM, heart healthy Updated Medication List Medication Instructions Recorded Confirmed Type qayhzxqi-czp-qhrqd acid 0.4 1 tab PO DAILY 12/09/20 03/15/24 History mg-lycopene 300 mcg-lutein 250 mcg tablet (Centrum Silver) one touch ultra mini #1 ea 09/25/22 01/21/24 Rx blood sugar diagnostic (OneTouch #100 ea 01/11/23 01/21/24 Rx Ultra Test strips) lancets 33 gauge (OneTouch Delica #100 ea 01/11/23 01/21/24 Rx Lancets) estradiol 0.01% (0.1 mg/gram) 1 g vaginal .COMPLEX #42.5 grams 02/06/23 03/15/24 Rx vaginal cream (Estrace) lactobacillus combination no.9 4 4,000 mmu cells PO DAILY 06/03/23 03/15/24 History billion cell capsule (Adult 50 Plus Probiotic) omeprazole 20 mg capsule,delayed 20 mg PO DAILY #90 caps 02/13/24 03/15/24 Rx release dicyclomine 10 mg capsule 10 mg PO BID 03/15/24 03/15/24 History gabapentin 100 mg capsule 200 mg PO HS neuropathy 03/15/24 03/15/24 History atorvastatin 20 mg tablet 20 mg PO QAM #30 tabs 03/19/24 Rx carvedilol 3.125 mg tablet 3.125 mg PO BIDM #60 tabs 03/19/24 Rx colchicine 0.6 mg tablet (Colcrys) 0.6 mg PO BID #60 tabs 03/19/24 Rx empagliflozin 10 mg tablet 10 mg PO DAILY #30 tabs 03/19/24 Rx (Jardiance) ondansetron 4 mg disintegrating 4 mg PO Q8H PRN nausea and 03/19/24 Rx tablet vomiting #20 tabs Hospital Stay Data Consultations 03/15/24 09:35 ED Decision to Admit Stat 03/15/24 09:49 Consult Specialist Field Engineer Routine 03/15/24 10:19 Consult Cardiology Stat 03/15/24 10:33 Consult Cardiac Rehabilitation Routine 03/18/24 00:38 Consult Nephrology Routine Procedures Performed Operation Date: 03/15/24 09:15 Actual Procedures p Cath, Left with Cors and Vent - Mandeep Pizano MD, PhD s Cineradiography w/Routine Exam - Mandeep Pizano MD, PhD Diagnostic Imagining Performed 03/15/24 09:16 CL Cath Imgs for PACS use only Stat Pending Results Patient Have Any Pending Studies at Discharge: No Discharge Instructions Given to Patient (Per Discharging Provider) Takotsubo cardiomyopathy yolanda temporary heart condition that develops in response to an intense emotional or physical experience. It's also known as stress cardiomyopathy or broken heart syndrome. In this condition, the heart's main pumping chamber changes shape, affecting the heart's ability to pump blood effectively. There was concern you may have also developed an irritation of the sac and fluid around your heart, this is called pericarditis, you have been started on a medicine (colchicine) to help this heal and be less uncomfortable Please wear your defibrillator vest and follow up with Dr Niño in cardiology
--- NOTE | 2024-03-19 19:23 | Discharge Summary ---
Discharge Summary Date of Service March 19, 2024 Notes For Next Care Provider Patient with multiple medication changes more importantly having to up titrate carvedilol, discerned course and duration of colchicine, determine glucose control as new start on Jardiance. Patient also has a LifeVest at time of discharge and will follow-up with cardiology with eye towards improvement of her EF with her Takotsubo cardiomyopathy so that she does not need a permanent implanted device Medication Changes From Visit Carvedilol place of metoprolol Atorvastatin is in place of simvastatin Jardiance for both heart failure diabetic control, but metformin stopped Bumex is discontinued Olmesartan is discontinued due to hypotensionpatient may eventually be a candidate for Entresto but blood pressure limit its use Admission HPI Per Admitting Provider Henna Barba is a 73 year old female who presents to the ER with chest pain. She reports sudden onset chest pain at 8am this morning. Occurred after getting up this morning. No radiation. Central crushing pain. Patient was a heart alert due to ST elevations anterolaterally and was taken emergently to the cardiac labor relations or personnel negotiator demonstrating normal coronary arteries. Left ventriculogram was consistent with Takotsubo cardiomyopathy. She notes she was [facility] her [facility]. Patient was seen in the ICU post cardiac cath and no longer have chest pain at this time but if feeling a little nauseous. She did not take any of her medications this morning. No prior history of myocardial infarction or cardiac problems. She has diabetes and HTN. Principal Dx & Hospital Course #1 = Principal Diagnosis (1) Takotsubo cardiomyopathy: Presented with ST elevations on EKG with chest pain Normal coronary arteries on cardiac cath - diagnosed with Takutsubo's cardiomyopathy (went to her brother [facility] yesterday) Switch metoprolol for carvedilol Did not tolerate Entresto BUmex not restarted at discharge Vitals signs have stablized.. In the evening of 03/17 near 7pm, patient had chest pain which was pressure like in nature. EKG showed more ST elevation in lateral leads. Discussion with cardiology implementation project coordinator, ordered colchicine. Resolution of symptoms Continue colchicine with duration and outpatient course to be determined by cardiology (2) DM type 2 (diabetes mellitus, type 2): Hemoglobin A1C 6.0 in Aug 2023, repeat with AM labs Stop metformin started on Jardiance by cardiology to treat both heart failure and diabetes (3) Hypertension: Monitor BP with multiple anti-hypertensives switched as above (4) Lumbar pain with radiation down both legs: Continue gabapentin 200mg HS (5) Hyperlipemia: Switch from simvastatin to atorvastatin per cardiology recommendations due to interactions (6) GERD (gastroesophageal reflux disease): Return to PPI formulary choice (7) Irritable bowel syndrome with diarrhea: Continue dicyclomine Plan Acute Kidney failureresolved returns to CKD 3 Discharge Exam Awake alert appropriate no distress no shortness of breath no chest pain Card exam is regular lungs are clear appropriate for discharge in the company of her Updated Medication List Medication Instructions Recorded Confirmed Type zdhdgdyh-gtj-smsec acid 0.4 1 tab PO DAILY 12/09/20 03/15/24 History mg-lycopene 300 mcg-lutein 250 mcg tablet (Centrum Silver) one touch ultra mini #1 ea 09/25/22 01/21/24 Rx blood sugar diagnostic (OneTouch #100 ea 01/11/23 01/21/24 Rx Ultra Test strips) lancets 33 gauge (OneTouch Delica #100 ea 01/11/23 01/21/24 Rx Lancets) estradiol 0.01% (0.1 mg/gram) 1 g vaginal .COMPLEX #42.5 grams 02/06/23 03/15/24 Rx vaginal cream (Estrace) lactobacillus combination no.9 4 4,000 mmu cells PO DAILY 06/03/23 03/15/24 History billion cell capsule (Adult 50 Plus Probiotic) omeprazole 20 mg capsule,delayed 20 mg PO DAILY #90 caps 02/13/24 03/15/24 Rx release dicyclomine 10 mg capsule 10 mg PO BID 03/15/24 03/15/24 History gabapentin 100 mg capsule 200 mg PO HS neuropathy 03/15/24 03/15/24 History atorvastatin 20 mg tablet 20 mg PO QAM #30 tabs 03/19/24 Rx carvedilol 3.125 mg tablet 3.125 mg PO BIDM #60 tabs 03/19/24 Rx colchicine 0.6 mg tablet (Colcrys) 0.6 mg PO BID #60 tabs 03/19/24 Rx empagliflozin 10 mg tablet 10 mg PO DAILY #30 tabs 03/19/24 Rx (Jardiance) ondansetron 4 mg disintegrating 4 mg PO Q8H PRN nausea and 03/19/24 Rx tablet vomiting #20 tabs Hospital Stay Data Consultations 03/15/24 09:35 ED Decision to Admit Stat 03/15/24 09:49 Consult Marketing Sales Supervisor Routine 03/15/24 10:19 Consult Cardiology Stat 03/15/24 10:33 Consult Cardiac Rehabilitation Routine 03/18/24 00:38 Consult Nephrology Routine Procedures Performed Operation Date: 03/15/24 09:15 Actual Procedures p Cath, Left with Cors and Vent - Mandeep Pizano MD, PhD s Cineradiography w/Routine Exam - Mandeep Pizano MD, PhD Diagnostic Imagining Performed 03/15/24 09:16 CL Cath Imgs for PACS use only Stat Pending Results Patient Have Any Pending Studies at Discharge: No Discharge Instructions Given to Patient (Per Discharging Provider) Takotsubo cardiomyopathy yolanda temporary heart condition that develops in response to an intense emotional or physical experience. It's also known as stress cardiomyopathy or broken heart syndrome. In this condition, the heart's main pumping chamber changes shape, affecting the heart's ability to pump blood effectively. There was concern you may have also developed an irritation of the sac and fluid around your heart, this is called pericarditis, you have been started on a medicine (colchicine) to help this heal and be less uncomfortable Please wear your defibrillator vest and follow up with Dr Niño in cardiology Total Time Total Time Spent Total Time Spent (In Minutes): It required greater than 30 minutes to prepare this patient for discharge. Coding Level of Care Code 97682 INP/OBS DISCH >30 MIN Diagnoses Takotsubo cardiomyopathy I51.81 DM type 2 (diabetes mellitus, type 2) E11.69 Diabetes mellitus complication status: with other specified complication Diabetes mellitus watermaster insulin use: without intermediate use Hypertension I10 Hypertension type: unspecified Lumbar pain with radiation down both legs M54.50; M79.604; M79.605 Hyperlipemia E78.5 GERD (gastroesophageal reflux disease) K21.9 Irritable bowel syndrome with diarrhea K58.0
== END 2024-03-19 14:10 | disposition home health service (06) | DRG 287 ==
LOC: ED 08:57 → 1E 10:09 → CC 10:09 → 1E 10:10 → SUATTDRO 10:10